=== PATIENT | female | born 1940 | race Caucasian/White ===

== ENCOUNTER → 2016-09-16 | Outpatient (REF) | payer MEDICARE | LOC: M SFHCCLAY 16:35 | PROVIDERS: ATTEND Nurse Practitioner Family | DX: J02.9 Acute pharyngitis, unspecified (principal) | CPT/HCPCS: 87070; 87804; 87880; 94640; G0463 ==

== ENCOUNTER → 2016-11-22 | Outpatient (CLI) | payer MEDICARE ==
[~2016-11-22] MED LIST: AMLO10TA2 PO; ASPI1TAB24 PO; LISI20TA3 PO; MAGN250T5 PO; MELO7.5T6 PO; NATU400T PO; OMEP40CA2 PO; PRAV20TA2 PO; VITA-130 PO; VITA100072 PO; VITA1TAB7 PO; [UNRECOGNIZED DRUG - CODE] PO
[2016-11-22 11:46] LABS: INR 0.9
[2016-11-22 11:47] LABS: MEAN CORPUSCULAR HEMOGLOBIN 29.3 pg (27.0-33.0); MEAN CORPUSCULAR HGB CONC 34.2 g/dl (32.0-36.5); MEAN CORPUSCULAR VOLUME 85.9 fl (80.0-96.0); RED CELL DISTRIBUTION WIDTH 13.3 % (11.5-14.5); WHITE BLOOD COUNT 10.2 K/mm3 (4.0-10.0)
[2016-11-22 12:09] LABS: ALBUMIN 3.8 GM/DL (3.2-5.2); ALBUMIN/GLOBULIN RATIO 1.19 (1.00-1.93); ALKALINE PHOSPHATASE 108 U/L (45-117); ALT/SGPT 24 U/L (12-78); ANION GAP 7 MEQ/L (8-16); AST/SGOT 23 U/L (15-37); BILIRUBIN,TOTAL 0.4 MG/DL (0.2-1.0); BLOOD UREA NITROGEN 17 MG/DL (7-18); CALCIUM LEVEL 9.4 MG/DL (8.8-10.2); CARBON DIOXIDE LEVEL 28 MEQ/L (21-32); CHLORIDE LEVEL 106 MEQ/L (98-107); CREATININE FOR GFR 0.84 MG/DL (0.55-1.02); GLOMERULAR FILTRATION RATE > 60.0 (>39); GLUCOSE, FASTING 116 MG/DL (83-110); POTASSIUM SERUM 3.9 MEQ/L (3.5-5.1); SODIUM LEVEL 141 MEQ/L (136-145)
--- NOTE | 2016-11-22 12:09 | REP ---
Chest two views HISTORY: Arthritis Comparison: None Linear densities are present in the left lower lobe consistent with atelectasis or scar. The right lung is clear. The heart is normal in size. The pulmonary vasculature is normal in appearance. Degenerative change is present in the thoracic spine. IMPRESSION: Left lower lobe atelectasis or scar. Signed by Aakash Wen MD 11/22/2016 12:00 P
--- NOTE | 2016-11-23 07:14 | ECGEPIP ---
Stationary ECG Study [facility] Test Date: 2016-11-22 Pat Name: CULLEN MCALLISTER Department: Room: - Gender: F Casino Dealer: Francine : 1940 Requested By: Curry Amos Order Number: [id number] Reading MD: Alonzo Vasquez Measurements Intervals [place] Rate: 102 P: 57 TX: 162 QRS: 3 QRSD: 78 T: 39 QT: 337 QTc: 440 Interpretive Statements Sinus tachycardia Diffusely low QRS complex voltages Nonspecific ST-T wave abnormalities Comparison tracing not on file Electronically Signed On 11-23-2016 7:13:58 EDT by Alonzo Vasquez
== END ==
LOC: M ADMPAT 10:08
PROVIDERS: ATTEND Orthopaedic Surgery
DX: M25.562 Pain in left knee (principal); Z01.818 Encounter for other preprocedural examination; Z79.899 Other long term (current) drug therapy

== ENCOUNTER 2016-12-06 09:19 | Inpatient (IN) | payer MEDICARE ==
[2016-11-22 10:35] VITALS: BP 157/81
--- NOTE | 2016-12-02 15:51 | HPE ---
DATE OF ADMISSION: 12/06/2016 ATTENDING PHYSICIAN: Dr. Curry Amos. DIAGNOSIS: Left knee osteoarthritis. HISTORY: The patient is a pleasant 76-year-old female with progressively worsening left knee pain and stiffness. She has failed to improve with conservative treatment. She is elected for a left total knee arthroplasty with Dr. Amos for her continued symptoms. Medical optimization pending with Dr. Swift. It is not available for review today. CURRENT MEDICATIONS: - pravastatin 20 mg daily - amlodipine 10 mg daily - omeprazole 20 mg daily - meloxicam 7.5 mg daily - lisinopril 20 mg daily - vitamin B6 200 mg daily - vitamin B12 1000 mcg daily - vitamin E 400 units daily - magnesium 250 mg daily - vitamin C 500 mg daily - fiber capsules 625 mg daily ALLERGIES: No known drug allergies. MEDICAL HISTORY: 1. Hyperlipidemia. 2. Hypertension. 3. Gastroesophageal reflux. SURGICAL HISTORY: Total hysterectomy. SOCIAL HISTORY: The patient denies tobacco or alcohol use. REVIEW OF SYSTEMS: The patient denies fevers, chills, nausea, vomiting, or diarrhea. She denies chest pain, shortness of breath, lightheadedness or headaches. She denies any recent upper respiratory tract infection symptoms or urinary tract infection symptoms. She does have persistent pain in the left knee with weightbearing activities. EXAMINATION: GENERAL: Well-nourished, well-developed female in no apparent distress. NECK: Supple without lymphadenopathy or jugular venous distention. HEART: Regular rate and rhythm. LUNGS: Clear to auscultation bilaterally. No rales or wheezes. ABDOMEN: Soft, nontender to palpation. Bowel sounds present. MUSCULOSKELETAL: The patient is walking with a slight limp favoring the left side. Inspection of the left knee revealed no gross abnormalities. The skin is intact. The patient can extend the knee to about five degrees and flex to almost 90 degrees. She does have normal strength of the left lower extremity. No hip irritability elicited with range of motion. Her calf is soft, nontender to palpation with no palpable cords noted. Distally she is neurovascularly intact. VITAL SIGNS: Height 5 feet 2 inches, weight 191.6 pounds, temperature 97.8, blood pressure 142/82, pulse 86, respirations 16. IMAGING: Chest x-ray shows left lower lobe atelectasis or scar. EKG shows sinus tachycardia. Diffusely low QRS complex voltages. Nonspecific ST-T wave abnormalities. MICROBIOLOGY: Nasal and sinus culture shows normal leola. Urinalysis positive for only 1+ bacteria. Urine culture shows no growth of clinical significance, one organism. LABORATORY DATA: Complete blood count: WBC elevated at 10.2, red blood cell count 5.13, hemoglobin 15.1, hematocrit 44.1, platelets 205. Erythrocyte sedimentation rate 11. Prothrombin time 12.3, INR 0.90. Comprehensive metabolic profile: Fasting glucose elevated at 116, BUN 17, creatinine for GFR 0.84. GFR greater than 60. Sodium 141, potassium 3.9, chloride 106, carbon dioxide 28, anion gap decreased at 7, calcium 9.4, AST 23, ALT 24, alkaline phosphatase 108, total bilirubin 0.4 , total protein 7.0, albumin 3.8, albumin globulin ratio 1.19. IMPRESSION: Left knee degenerative arthritis. PLAN: The patient has consented for an elective left total knee arthroplasty with Dr. Amos. Pending medical optimization by Dr. Swift. [facility] CENTERLinda
[2016-12-06] VITALS (8 sets, daily range): BP systolic 131–179; BP diastolic 65–81; O2SAT 95
[~2016-12-06] VITALS: Ht 154.9 cm; Wt 86.0 kg
[2016-12-06] MEDS ORDERED: LR 1,000 ML IV SCH ×4 (09:45→17:00)
[2016-12-06] MEDS ORDERED: COUM1TAB17 PO (10:00)
--- NOTE | 2016-12-06 10:31 | IPN ---
DATE: 12/06/2016 Patient seen and examined. She wishes to proceed with a left total knee arthroplasty. She understands the nature of this, the risks of bleeding, infection, damage to nerves, vessels, persistent pain, wear, loosening, blood clots, medical problems, , among others. Preoperative clearance was obtained. Will plan on proceeding with a left total knee arthroplasty.
[2016-12-06] MEDS ORDERED: BUPIVACAINE HCL 0.25% 30 ML VIAL As Ordered ONE (10:34)
[2016-12-06] MEDS ORDERED: TRANEXAMIC ACID 100 MG/ML 10ML VIAL As Ordered ONE (10:34)
[2016-12-06] MEDS ORDERED: EPINEPHrine INJ 1 MG/ML 1ML VIAL/AMP As Ordered ONE (10:35)
[2016-12-06] MEDS ORDERED: ceFAZolin 1GM INJ (J0690) As Ordered ONE (10:35)
[2016-12-06] MEDS ORDERED: fentaNYL 100 MCG/2 ML INJECTION (J3010) As Ordered ONE ×3 (11:01→12:36)
[2016-12-06] MEDS ORDERED: MIDAZOLAM INJ 2 MG/2 ML VIAL (J2250) As Ordered ONE ×2 (11:01→12:36)
[2016-12-06] MEDS ORDERED: fentaNYL 100 MCG/2 ML INJECTION (J3010) IV ONE (12:15)
[2016-12-06] MEDS ORDERED: MIDAZOLAM INJ 2 MG/2 ML VIAL (J2250) IV ONE (12:15)
[2016-12-06] MEDS ORDERED: ONDANSETRON 4MG/2ML VIAL (J2405) As Ordered ONE (12:36)
[2016-12-06] MEDS ORDERED: LIDOCAINE 2% INJ 100 MG/5 ML SDV (FOR ANES.) As Ordered ONE (12:36)
[2016-12-06] MEDS ORDERED: PROPOFOL 200 MG/20 ML VIAL As Ordered ONE ×2 (12:36→13:17)
[2016-12-06] MEDS ORDERED: ROPIvacaine 0.5% 30 ML INJECTION (J2795) ONE (14:10)
[2016-12-06] MEDS ORDERED: EPINEPHrine INJ 1 MG/ML 1ML VIAL/AMP ONE (14:10)
[2016-12-06] MEDS ORDERED: MORPHINE PCA 1MG/ML 100ML CADD As Ordered ONE (14:11)
[2016-12-06] MEDS: LR 1,000 ML IV SCH (14:30)
[2016-12-06] MEDS ORDERED: EPIDURAL/PCA KEYS XX PRN (14:30)
[2016-12-06] MEDS ORDERED: ONDANSETRON 4MG/2ML VIAL (J2405) IV PRN ×4 (14:30→17:00)
[2016-12-06] MEDS ORDERED: ACETAMINOPHEN TAB 650MG DOSE (2X325MG) PO PRN (14:30)
[2016-12-06] MEDS ORDERED: MORPHINE PCA 1MG/ML 100ML CADD IV PRN (14:30)
[2016-12-06] MEDS ORDERED: FLEET ENEMA PR PRN (14:30)
[2016-12-06] MEDS ORDERED: NALBUPHINE HCL 10 MG/ML AMP (J2300) IV PRN (14:30)
[2016-12-06] MEDS ORDERED: diphenhydrAMINE INJ 50MG/ML VIAL (J1200) IV PRN (14:30)
[2016-12-06] MEDS ORDERED: fentaNYL 100 MCG/2 ML INJECTION (J3010) IV PRN ×2 (14:30→17:00)
[2016-12-06] MEDS ORDERED: NALOXONE INJ 0.4 MG/1 ML VIAL (J2310) IV PRN (14:30)
[2016-12-06] MEDS ORDERED: WARFARIN SOD 5 MG TAB PO SCH (17:00)
--- NOTE | 2016-12-06 21:33 | CR ---
DATE OF CONSULTATION: 12/06/2016 CONSULTING PHYSICIAN: Dr. Curry Amos REASON FOR CONSULTATION: Medical management. PRIMARY CARE PROVIDER: Fariba Edgar HISTORY OF PRESENT ILLNESS: The patient is a 76-year-old female with a past medical history significant for hypertension, hyperlipidemia, gastroesophageal reflux disease (GERD) and osteoarthritis, presented to the hospital for an elective left knee surgery by Dr. Amos. The patient tolerated the procedure well. She was seen postoperatively for medical management by the hospitalist group. The patient, at this time, appears to be comfortable, eating dinner, denies any chest pain, shortness of breath. No fevers or chills. Knee pain is controlled. Vitals appear within normal limits. REVIEW OF SYSTEMS: 12-point review of systems was obtained, all of which was negative except for those mentioned above. PAST MEDICAL HISTORY: Significant for Hypertension, hyperlipidemia, GERD. PAST SURGICAL HISTORY: Significant for hysterectomy. ALLERGIES: No known drug allergies. SOCIAL HISTORY: The patient denies tobacco or alcohol use. FAMILY HISTORY: Noncontributory. MEDICATIONS: Include: - pravastatin 20 mg by mouth daily - amlodipine 10 mg by mouth daily - omeprazole 20 mg by mouth daily - meloxicam 7.5 mg by mouth daily - lisinopril 20 mg by mouth daily - vitamin B6 200 mg daily - vitamin B12 1000 mcg by mouth daily - vitamin E 400 units daily - magnesium 250 mg by mouth daily - vitamin C 500 mg by mouth daily - Fiber-Caps 625 mg by mouth daily PHYSICAL FINDINGS: VITAL SIGNS: Postoperatively, temperature 99.4, pulse 81, respiratory rate 12, blood pressure 147/71, pulse oximetry 96% on 1 liter nasal cannula. HEENT: Pupils equal, round, reactive to light and accommodation. Neck: Supple. No jugular venous distention (JVD). Lungs: Clear to auscultation bilaterally. Abdomen: Soft, nontender, nondistended. Obese. Extremities: Left knee dressing intact. No clubbing or sepsis, cyanosis or edema. Neurologic: Cranial nerves II-XII grossly intact. No focal deficits. LABORATORY FINDINGS: No labs were reviewed prior to clearance. ASSESSMENT AND PLAN: 1. Knee osteoarthritis, status post left total knee arthroplasty by Dr. Curry Amos. Activity, pain control and diet per surgery. Patient is currently on Coumadin 5 mg daily. Pain is currently controlled. 2. Hypertension. We will resume the patient's amlodipine. We will hold lisinopril at this time pending labs in the morning. 3. History of hyperlipidemia. Continue the patient's pravastatin 20 mg by mouth daily. 4. History of gastroesophageal reflux disease (GERD). Continue the patient omeprazole 40 mg by mouth daily. 5. Deep vein thrombosis (DVT) prophylaxis. The patient is currently on Coumadin 5 mg. The patient will be seen by Dr. Nneka Washburn in the morning.
--- NOTE | 2016-12-06 23:20 | RO ---
DATE OF PROCEDURE: 12/06/2016 PREOPERATIVE DIAGNOSIS: Left knee osteoarthritis. POSTOPERATIVE DIAGNOSIS: Left knee osteoarthritis. PROCEDURE: Left total knee arthroplasty using a PFC rotating platform, posterior stabilize, size 3 femur, size 2-1/2 tibial tray, 15 polyethylene and a 32 patellar button. SURGEON: Dr. Curry Amos DENTAL APPLIANCE REPAIRER: ANESTHESIA: Spinal ESTIMATED BLOOD LOSS: Less than 50 mL. COMPLICATIONS: None. INDICATIONS: A 76-year-old woman who has had gradually worsening left knee pain and loss of range of motion, particularly in flexion. She can only flex back to about 90 degrees. She had severe arthritis on the x-rays and had failed conservative management. She wished to go ahead with surgical treatment, understood the nature of the procedure, risks of bleeding, infection, damage to nerves, vessels, persistent pain, wear, loosening, blood clots, medical problems , among others. DESCRIPTION OF PROCEDURE: The patient was taken to the operating room and placed in the supine position after spinal anesthesia was induced. Left lower extremity was prepped and draped in the usual sterile fashion. Time-out was performed. I then created a longitudinal incision over the anterior aspect of the knee. Sharp dissection was carried down through subcutaneous tissue. I then created a medial parapatellar arthrotomy per routine, everted the patella and flexed the knee up. I could only flex it to 90 degrees. I then was able to use the canal initiating reamer followed by the intramedullary femoral guide set at 5 valgus and 10 mm cut. This was pinned in place by the senior care assistant. The distal femoral cut was made by the senior care assistant as I protected soft tissues. I did remove some of the fat pad. I had also done a medial release. The femur was sized to be a 3, so I pinned the external rotation guide on the end of the femur and put the 4-in-1 cutting block on and secured this down, made the remaining four cuts. We then used the tibial alignment guide and put at the appropriate amount of posterior slope and valgus and pinned this in place. The cut was made about 2 mm off the low side. It looked like a fairly big cut, and then this bone was removed. At this point, we took on the challenging task of removing some soft tissue from either side of the knee and the very large osteophytes from the posterior aspect of the femur with an osteotome and curette and rongeur. Care was taken to stay along the bone. I used a curette to try to fish these very large osteophytes out of the back of the knee. This was likely contributing to her loss of flexion. The spacer blocks were then used and it seemed to be a 15 was appropriate in flexion/extension and the gaps were excellent. I then prepared the femoral box cut because of the posterior cruciate ligament (PCL) was deficient, and I think partly because of the thickness that was required to take on the tibial side. The PCL was removed, the box cutting guide was placed. Three cuts were made in the usual fashion. I removed the excess bone and then prepared the tibia. The femoral component was placed and posterior retractor was placed. I sized the tibia to be a 2.5. This was pinned in place, drilled, broached and then the trial components were placed. Excellent stability was noted, excellent alignment, and this was a size 15 polyethylene. I then freehand cut the patella removing about 7 mm of bone, sized it to be a 32. Drill holes were placed and the trial patella was placed and the patella tracked quite nicely. I was overall very pleased with the alignment, position and fit of the components. Trial components were removed, the senior care assistant prepared the bone cement in the modern technique on the back table. I irrigated the bony surfaces copiously, dried them carefully. When the cement was prepared, we placed the cement on the tibial side, impacted it in place, removed excess bone cement, cemented on the femoral component and removed excess bone cement. Both of them were well seated. I then placed a 15 x 3 rotating platform polyethylene and reduced the knee, brought it out in extension. Excellent extension was noted and excellent alignment was noted. I then cemented on the patellar component and had dried the bony surfaces before cementing and held this in place with a clamp until the cement had hardened. I did close the deep layer with some interrupted #1 Vicryl sutures, and we had placed the TXA solution in the knee. We then used the Stratafix suture starting in the midportion of patella, and we worked in opposite directions closing the deep retinaculum in a watertight closure. The subcu was irrigated, the subcu was closed with #2-0 Vicryl, the skin with nelson. I did place the PainBuster catheter through the superolateral aspect of the knee, inserted the catheter and primed this with 20 mL of Marcaine. Once the sterile dressing was applied, and the PainBuster was secured to the side of the knee, she was taken to the recovery room in stable condition. The tourniquet had been deflated prior to final wound closure. Plan will be routine postop. The senior care assistant was instrumental in holding retractors, in making a couple of the bone cuts and assisting in wound closure. ADDENDUM: This was coded as an unusually difficult procedure because of the patient's very limited range of motion preoperatively and the significant large osteophytes that were noted posteriorly and the somewhat difficulty we had actually obtaining improved range of motion, the soft tissue balancing was more challenging. This required more time than the standard total knee. Addendum Dictated: 12/06/2016 1544 Addendum Transcribed: 12/07/2016 0630 gabriel OVALLE
[2016-12-07] MEDS: LR 1,000 ML IV SCH (03:50)
[2016-12-07 06:00] VITALS: BP 161/77
[2016-12-07] MEDS ORDERED: PERCOCET 5MG/325MG TAB PO PRN (07:00)
[2016-12-07 07:34] LABS: INR 1.53
[2016-12-07 07:53] LABS: ALBUMIN 2.9 GM/DL (3.2-5.2); ALBUMIN/GLOBULIN RATIO 0.88 (1.00-1.93); ALKALINE PHOSPHATASE 69 U/L (45-117); ALT/SGPT 19 U/L (12-78); ANION GAP 7 MEQ/L (8-16); AST/SGOT 20 U/L (15-37); BILIRUBIN,TOTAL 0.3 MG/DL (0.2-1.0); BLOOD UREA NITROGEN 9 MG/DL (7-18); CALCIUM LEVEL 8.5 MG/DL (8.8-10.2); CARBON DIOXIDE LEVEL 29 MEQ/L (21-32); CHLORIDE LEVEL 103 MEQ/L (98-107); CREATININE FOR GFR 0.78 MG/DL (0.55-1.02); GLOMERULAR FILTRATION RATE > 60.0 (>39); GLUCOSE, FASTING 144 MG/DL (83-110); POTASSIUM SERUM 3.9 MEQ/L (3.5-5.1); SODIUM LEVEL 139 MEQ/L (136-145); TOTAL PROTEIN 6.2 GM/DL (6.4-8.2)
[2016-12-07 08:16] LABS: MEAN CORPUSCULAR HEMOGLOBIN 29.3 pg (27.0-33.0); MEAN CORPUSCULAR VOLUME 86.4 fl (80.0-96.0); RED CELL DISTRIBUTION WIDTH 13.3 % (11.5-14.5); WHITE BLOOD COUNT 12.6 K/mm3 (4.0-10.0)
[2016-12-07] MEDS: PRAVASTATIN 20 MG TAB PO SCH (09:52)
[2016-12-07] MEDS: MIRALAX *UNIT DOSE* 17GM PACKET PO SCH (09:52)
[2016-12-07] MEDS: MOM 30ML SUSPENSION UDC PO SCH (09:52)
[2016-12-07] MEDS: OMEPRAZOLE 20 MG CAP PO SCH (09:53)
[2016-12-07] MEDS: SENOKOT S TAB PO SCH ×2 (09:53→21:23)
[2016-12-07] MEDS: amLODIPine 10 MG TAB PO SCH (09:53)
[2016-12-07] MEDS: PERCOCET 5MG/325MG TAB PO PRN ×3 (09:54→23:18)
[2016-12-07 10:00] VITALS: BP 155/71
[2016-12-07] MEDS: ONDANSETRON 4 MG TAB (S0181) PO PRN ×2 (10:05→17:13)
--- NOTE | 2016-12-07 10:30 | REP ---
LEFT KNEE, TWO VIEWS: AP and lateral views of the left knee are performed. There is a total knee prosthesis in good position. Structures are well aligned. Metallic skin nelson are seen anteriorly. Signed by Chavez Hewitt MD 12/07/2016 02:26 P
--- NOTE | 2016-12-07 11:08 | IPNPDOC ---
Subjective Date Seen The patient was seen on 12/07/16. Subjective Chief Complaint/HPI The patient is a 76-year-old female admitted with a reason for visit of Left Knee Arthritis. Events since last encounter POD #1 LEFT TKR. c/o pain, otherwise feels well. Constitutional: Denies: Chills, Fever, Night Sweats Pulmonary: Denies: Cough, Dyspnea Cardiovascular: Denies: Chest Pain, Lt Headedness, Orthopnea, Palpitations, Paroxysmal Noc. Dyspnea Gastrointestinal: Denies: Abdominal Pain, Constipation, Diarrhea, Nausea, Vomiting Psych: Reports: Mood Normal, Denies: Depression, Memory Issues Objective Physical Examination General Exam: Positive: Alert, No Acute Distress Eye Exam: Positive: Conjunctiva & lids normal, EOMI, PERRLA, Negative: Sclera icteric Neck Exam: Positive: Supple, Negative: JVD, thyromegaly Chest Exam: Positive: Clear to auscultation, Normal air movement Abdomen Exam: Positive: Normal bowel sounds, Soft, Negative: Hepatospenomegaly, Tenderness Psych Exam: Positive: Mental status NL, Mood NL, Oriented x 3 Assessment /Plan Problems (1) S/P total knee replacement Status: Acute Problem Text: Pain control and warfarin per Ortho (2) HTN (hypertension) Status: Chronic Response to Treatment: Stable Problem Text: Amlodipine, lisinopril and HCTZ home doses started. REnal function stable. (3) Hyperlipemia Status: Chronic Response to Treatment: Stable Problem Text: Pravachol home dose ordered (4) Diabetes Status: Chronic Response to Treatment: Stable Problem Text: diet controlled Plan/VTE VTE Prophylaxis Ordered?: Yes (warfarin) Plan Attending note: I saw and evaluated the patient, and I agree with the plan of care as discussed and documented above by Lucina Noriega. Pt doing well POD1 from R total knee. Passing gas, tolerating diet, no respiratory problems, no chest pain. Doing bowel regimen. Participating in PT. BP controlled. Cont current care. DVT ppx per ortho. INR 1.53. Jorge Linda MD VS, I&O, 24H, Fishbone Vital Signs/I&O Vital Signs Date Time Temp Pulse Resp B/P Pulse Ox O2 Delivery O2 Flow Rate FiO2 12/07/16 09:54 18 12/07/16 09:53 86 161/77 12/07/16 06:00 98.9 96 Nasal Cannula 1.0 I&O- Last 24 Hours up to 6 AM 12/07/16 06:00 Intake Total 920 ml Output Total 775 ml Balance 145 ml Laboratory Data 24H LABS Laboratory Tests 2 12/07/16 07:04: Blood Urea Nitrogen 9, Creatinine 0.78, Sodium Level 139, Potassium Level 3.9, Chloride Level 103, Carbon Dioxide Level 29, Calcium Level 8.5L, Aspartate Amino Transf (AST/SGOT) 20, Alanine Aminotransferase (ALT/SGPT) 19, Alkaline Phosphatase 69, Total Bilirubin 0.3, Total Protein 6.2L, Albumin 2.9L, Albumin/ Globulin Ratio 0.88L, Anion Gap 7L, Glomerular Filtration Rate > 60.0, Prothromb Time International Ratio 1.53, Prothrombin Time 18.5H CBC/BMP Laboratory Tests 12/07/16 07:04 Calcium Level 8.5 L, Aspartate Amino Transf (AST/SGOT) 20, Alanine Aminotransferase (ALT/SGPT) 19, Alkaline Phosphatase 69, Total Bilirubin 0.3, Total Protein 6.2 L, Albumin 2.9 L, Red Blood Count 4.36, Mean Corpuscular Volume 86.4, Mean Corpuscular Hemoglobin 29.3, Mean Corpuscular Hemoglobin Concent 34.0, Red Cell Distribution Width 13.3 Gaby Noriega Dec 07, 2016 11:07 JORGE LINDA MD Dec 07, 2016 14:19
[2016-12-07] MEDS: LISINOPRIL 20 MG TAB PO SCH (13:58)
[2016-12-07] MEDS: hydroCHLOROthiazide 25 MG TAB PO SCH (13:58)
[2016-12-07 14:00] VITALS: BP 146/67
[2016-12-07 18:00] VITALS: BP 142/64
[2016-12-07 22:00] VITALS: BP 145/70
[2016-12-08 06:00] VITALS: BP 145/69
[2016-12-08] MEDS: PERCOCET 5MG/325MG TAB PO PRN ×3 (06:45→20:12)
[2016-12-08 07:11] LABS: INR 2.35; MEAN CORPUSCULAR HEMOGLOBIN 28.7 pg (27.0-33.0); MEAN CORPUSCULAR HGB CONC 33.7 g/dl (32.0-36.5); MEAN CORPUSCULAR VOLUME 85.1 fl (80.0-96.0); RED CELL DISTRIBUTION WIDTH 13.4 % (11.5-14.5); WHITE BLOOD COUNT 15.7 K/mm3 (4.0-10.0)
[2016-12-08 07:15] LABS: ALBUMIN 2.7 GM/DL (3.2-5.2); ALBUMIN/GLOBULIN RATIO 0.82 (1.00-1.93); ALKALINE PHOSPHATASE 66 U/L (45-117); ALT/SGPT 14 U/L (12-78); ANION GAP 6 MEQ/L (8-16); AST/SGOT 14 U/L (15-37); BILIRUBIN,TOTAL 0.5 MG/DL (0.2-1.0); BLOOD UREA NITROGEN 12 MG/DL (7-18); CALCIUM LEVEL 8.5 MG/DL (8.8-10.2); CARBON DIOXIDE LEVEL 31 MEQ/L (21-32); CHLORIDE LEVEL 100 MEQ/L (98-107); CREATININE FOR GFR 0.77 MG/DL (0.55-1.02); GLOMERULAR FILTRATION RATE > 60.0 (>39); GLUCOSE, FASTING 141 MG/DL (83-110); POTASSIUM SERUM 3.6 MEQ/L (3.5-5.1); SODIUM LEVEL 137 MEQ/L (136-145)
[2016-12-08] MEDS ORDERED: PREVNAR 13 VACCINE SYRINGE (CPT CODE:90670) IM ONE (09:00)
[2016-12-08] MEDS: PRAVASTATIN 20 MG TAB PO SCH (09:02)
[2016-12-08] MEDS: MIRALAX *UNIT DOSE* 17GM PACKET PO SCH (09:02)
[2016-12-08] MEDS: hydroCHLOROthiazide 25 MG TAB PO SCH (09:03)
[2016-12-08] MEDS: amLODIPine 10 MG TAB PO SCH (09:04)
[2016-12-08] MEDS: LISINOPRIL 20 MG TAB PO SCH (09:04)
[2016-12-08] MEDS: OMEPRAZOLE 20 MG CAP PO SCH (09:04)
[2016-12-08] MEDS: SENOKOT S TAB PO SCH ×2 (09:04→20:12)
[2016-12-08] MEDS: MOM 30ML SUSPENSION UDC PO SCH (09:04)
[2016-12-08 14:00] VITALS: BP 119/56
[2016-12-08 22:00] VITALS: BP_SYST 113; BP_SYST 120; BP_DIAS 56; BP_DIAS 68
[2016-12-09] MEDS: PERCOCET 5MG/325MG TAB PO PRN (04:42)
[2016-12-09 06:00] VITALS: BP 118/58
[2016-12-09 06:58] LABS: INR 1.85
[2016-12-09 07:08] LABS: ALBUMIN 2.4 GM/DL (3.2-5.2); ALBUMIN/GLOBULIN RATIO 0.71 (1.00-1.93); ALKALINE PHOSPHATASE 67 U/L (45-117); ALT/SGPT 14 U/L (12-78); ANION GAP 6 MEQ/L (8-16); AST/SGOT 17 U/L (15-37); BILIRUBIN,TOTAL 0.4 MG/DL (0.2-1.0); BLOOD UREA NITROGEN 13 MG/DL (7-18); CALCIUM LEVEL 8.5 MG/DL (8.8-10.2); CARBON DIOXIDE LEVEL 30 MEQ/L (21-32); CHLORIDE LEVEL 100 MEQ/L (98-107); CREATININE FOR GFR 0.78 MG/DL (0.55-1.02); GLOMERULAR FILTRATION RATE > 60.0 (>39); GLUCOSE, FASTING 130 MG/DL (83-110); POTASSIUM SERUM 3.7 MEQ/L (3.5-5.1); SODIUM LEVEL 136 MEQ/L (136-145); TOTAL PROTEIN 5.8 GM/DL (6.4-8.2)
[2016-12-09] MEDS ORDERED: COUM2.5T11 PO (08:54)
[2016-12-09] MEDS ORDERED: PERC5TAB6 PO (08:54)
[2016-12-09] MEDS: MIRALAX *UNIT DOSE* 17GM PACKET PO SCH (09:00)
[2016-12-09] MEDS: SENOKOT S TAB PO SCH (09:00)
[2016-12-09] MEDS: MOM 30ML SUSPENSION UDC PO SCH (09:00)
[2016-12-09] MEDS: OMEPRAZOLE 20 MG CAP PO SCH (09:05)
[2016-12-09] MEDS: LISINOPRIL 20 MG TAB PO SCH (09:05)
[2016-12-09 09:06] VITALS: BP 118/58
[2016-12-09] MEDS: hydroCHLOROthiazide 25 MG TAB PO SCH (09:06)
[2016-12-09] MEDS: PRAVASTATIN 20 MG TAB PO SCH (09:06)
[2016-12-09] MEDS: amLODIPine 10 MG TAB PO SCH (09:06)
[2016-12-09 12:17] VITALS: BP 121/56
[2016-12-09] MEDS ORDERED: WARFARIN SOD 2.5 MG TAB PO ONE (17:00)
--- NOTE | 2016-12-14 09:45 | DSES ---
DATE OF ADMISSION: 12/06/2016 DATE OF DISCHARGE: 12/09/2016 ADMITTING DIAGNOSIS: Symptomatic left knee osteoarthritis. DISCHARGE DIAGNOSIS: Status post left total knee arthroplasty. HISTORY OF PRESENT ILLNESS: This is a pleasant 76-year-old female with progressively worsening left knee symptoms with a history of osteoarthritis. She has consented for left total knee arthroplasty per Dr. Curry Amos. Medical optimization per Dr. Swift. X-rays are consistent with advanced osteoarthritis. The patient consented for a left total knee arthroplasty per Dr. Curry Amos. OPERATION PERFORMED: Left total knee arthroplasty. HOSPITAL COURSE: The patient uneventfully underwent left total knee arthroplasty under spinal anesthesia and was returned to recovery comfortable. Our hospital team discharged the patient on 12/09/2016 with the following instructions. Weightbearing as tolerated left lower extremity with walker. Coumadin and FLORENTINO stockings times 30 days, Percocet as needed pain, diet is regular, Optifoam dressing change in 4 days time. The patient will follow up at [facility] clinic in 12-14 days for wound check, staple removal. The patient is encouraged to contact our office sooner with increased pain, redness, drainage, bleeding, fever greater than 101 or further concerns. VASQUEZ
== END 2016-12-09 12:55 | disposition home health service (06) | DRG 470 ==
LOC: M OR 09:19 → M MS5PR 15:25
PROVIDERS: ADMIT Orthopaedic Surgery; ATTEND Orthopaedic Surgery
PROC: 0SRD0J9 Replacement of Left Knee Joint with Synthetic Substitute, Cemented, Open Approach (ICD-10-PCS; principal; 2016-12-06 11:45)
DX: M17.12 Unilateral primary osteoarthritis, left knee (principal); I10 Essential (primary) hypertension; E78.5 Hyperlipidemia, unspecified; K21.9 Gastro-esophageal reflux disease without esophagitis; E66.9 Obesity, unspecified; R26.89 Other abnormalities of gait and mobility; E11.9 Type 2 diabetes mellitus without complications; Z79.899 Other long term (current) drug therapy; Z90.710 Acquired absence of both cervix and uterus; Z68.35 Body mass index [BMI] 35.0-35.9, adult; Z79.82 Long term (current) use of aspirin

== ENCOUNTER → 2016-12-12 | Outpatient (REF) | payer MEDICARE ==
[~2016-12-12] MED LIST changes: +COUM1TAB17 PO; +COUM2.5T11 PO; +PERC5TAB6 PO
[2016-12-12 13:54] LABS: INR 2.55
== END ==
LOC: M LAB REF 13:31
PROVIDERS: ATTEND Nurse Practitioner Family
DX: Z79.01 Long term (current) use of anticoagulants (principal)

== ENCOUNTER → 2016-12-22 | Outpatient (REF) | payer MEDICARE ==
[2016-12-22 12:20] LABS: INR 1.82
== END ==
LOC: M LABDRAW1 11:44
PROVIDERS: ATTEND Orthopaedic Surgery
DX: Z79.01 Long term (current) use of anticoagulants (principal)

== ENCOUNTER → 2016-12-29 | Outpatient (REF) | payer MEDICARE ==
[2016-12-29 17:15] LABS: INR 1.55
== END ==
LOC: M LAB REF 16:06
PROVIDERS: ATTEND Nurse Practitioner Family
DX: Z79.01 Long term (current) use of anticoagulants (principal)

== ENCOUNTER → 2017-01-09 | Outpatient (REF) | payer MEDICARE ==
[2017-01-09 11:35] LABS: MEAN CORPUSCULAR HEMOGLOBIN 28.7 pg (27.0-33.0); MEAN CORPUSCULAR HGB CONC 32.7 g/dl (32.0-36.5); MEAN CORPUSCULAR VOLUME 87.8 fl (80.0-96.0); RED CELL DISTRIBUTION WIDTH 13.8 % (11.5-14.5)
[2017-01-09 12:12] LABS: ALBUMIN 3.7 GM/DL (3.2-5.2); ALBUMIN/GLOBULIN RATIO 1.12 (1.00-1.93); ALKALINE PHOSPHATASE 91 U/L (45-117); ALT/SGPT 22 U/L (12-78); ANION GAP 7 MEQ/L (8-16); AST/SGOT 18 U/L (15-37); BILIRUBIN,TOTAL 0.5 MG/DL (0.2-1.0); BLOOD UREA NITROGEN 11 MG/DL (7-18); CALCIUM LEVEL 9.2 MG/DL (8.8-10.2); CARBON DIOXIDE LEVEL 31 MEQ/L (21-32); CHLORIDE LEVEL 104 MEQ/L (98-107); CHOLESTEROL LEVEL 191 MG/DL (<200); CREATININE FOR GFR 0.79 MG/DL (0.55-1.02); GLOMERULAR FILTRATION RATE > 60.0 (>39); GLUCOSE, FASTING 103 MG/DL (83-110); SODIUM LEVEL 142 MEQ/L (136-145); TRIGLYCERIDES LEVEL 132 MG/DL (<150)
== END ==
LOC: M SFHCCLAY 08:57
PROVIDERS: ATTEND Nurse Practitioner Family
DX: K21.9 Gastro-esophageal reflux disease without esophagitis (principal); I10 Essential (primary) hypertension; E11.69 Type 2 diabetes mellitus with other specified complication; E78.4 Other hyperlipidemia; Z13.21 Encounter for screening for nutritional disorder

== ENCOUNTER → 2017-04-03 | Outpatient (CLI) | payer MEDICARE ==
[~2017-04-03] MED LIST changes: +ASPI-161 PO; -ASPI1TAB24 PO; +ASPI81TA85 PO; -COUM2.5T11 PO; +COUM2.5T17 PO; -MAGN250T5 PO; +MAGN250T6 PO; -MELO7.5T6 PO; +MELO7.5T7 PO; +PERC5TAB12 PO; -PERC5TAB6 PO; -VITA-130 PO; +VITA500T PO
--- NOTE | 2017-04-03 11:37 | REPMRS ---
Patient History The patient states she had a clinical breast exam in 04/12 Patient is postmenopausal. Family history of breast cancer in sister at age 50 or over and breast cancer in mother at age 50 or over. Benign cyst aspiration of the left breast, 2007. Digital Woman Screen Mammo: April 03, 2017 - Exam #: [id number] Bilateral CC and MLO view(s) were taken. Technologist: Mariana Griggs, Technologist Prior study comparison: April 01, 2016, digital woman screen mammo performed at [facility]. March 04, 2015, digital woman screen mammo performed at [facility]. FINDINGS: There are scattered fibroglandular densities. There has been no change in the appearance of the mammogram from the prior studies. There is a mild amount of residual fibroglandular tissue which is fairly symmetric. There is no interval development of dominant mass, architectural distortion, or clustered microcalcification suggestive of malignancy. ASSESSMENT: BI-RADS/ACR category 1 mammogram. Negative. Recommendation Routine screening mammogram in 1 year (for women over age 40). This mammogram was interpreted with the aid of an FDA-approved computer-aided dectection system. Electronically Signed By: Chavez Hewitt MD 04/03/17 0318
--- NOTE | 2017-04-04 09:52 | DEXA ---
AP SPINE L1 - L4 1.261 0.5 2.3 LT FEMUR TOTAL 0.805 -1.6 0.3 RT FEMUR TOTAL 0.783 -1.8 0.1 TOTAL BODY TOTAL OTHER DUAL FEMUR FRAX* ASSESSMENT Risk factors: Not performed. 10 year probability of fracture Major osteoporotic fracture % Hip fracture % COMMENTS: Normal bone densitometry of the spine. There is low bone density of the hips. The decreased density of the spine does not represent a significant change. The decreased density of the left hip does represent a significant change. The decreased density of the right hip does represent a significant change. The density of the spine is increased 7.5% since the initial exam on 11/01/2006. The spine density has decreased 0.5% since the most recent exam on 03/04/2015. The density of the left hip has decreased 24.6% since the initial exam on 2000. The density of the left hip has decreased 6.1% since the most recent exam on 03/2015. The density of the right hip has decreased 20.7% since the initial exam on 11/01. The density of the right hip has decreased 2.7% since the most recent exam on . FOLLOW-UP: Recommendation for the next bone density exam: 2 years. VASQUEZ
== END ==
LOC: M WHC 09:47
PROVIDERS: ATTEND Nurse Practitioner Family
DX: Z12.31 Encounter for screening mammogram for malignant neoplasm of breast (principal); M85.9 Disorder of bone density and structure, unspecified; Z78.0 Asymptomatic menopausal state; Z80.3 Family history of malignant neoplasm of breast
CPT/HCPCS: 77080; G0202

== ENCOUNTER → 2017-05-15 | Outpatient (CLI) | payer MEDICARE ==
--- NOTE | 2017-05-15 10:15 | REP ---
PA and lateral chest: Comparisons 11/12/2016. There is minor discoid atelectasis versus parenchymal scar in the left costophrenic angle. Lung feldman otherwise clear. Cardiac size is normal. The alistair, mediastinum, and bony thorax are unchanged. Impression: No significant interval change.
[2017-05-15 11:48] LABS: ANION GAP 10 MEQ/L (8-16); BLOOD UREA NITROGEN 17 MG/DL (7-18); CALCIUM LEVEL 9.5 MG/DL (8.8-10.2); CARBON DIOXIDE LEVEL 29 MEQ/L (21-32); CHLORIDE LEVEL 107 MEQ/L (98-107); CREATININE FOR GFR 0.75 MG/DL (0.55-1.02); GLOMERULAR FILTRATION RATE > 60.0 (>39); GLUCOSE, FASTING 104 MG/DL (83-110); POTASSIUM SERUM 4.3 MEQ/L (3.5-5.1); SODIUM LEVEL 146 MEQ/L (136-145)
== END ==
LOC: M CLY 08:39
PROVIDERS: ATTEND Ophthalmology
DX: I10 Essential (primary) hypertension (principal)

== ENCOUNTER 2017-06-01 09:15 | Day surgery (SDC) | payer MEDICARE ==
[~2017-06-01] VITALS: Ht 154.9 cm; Wt 85.7 kg
[~2017-06-01 09:15] MED LIST changes: +OFLOXACIN 0.3 % (OCUFLOX) OPTH SOL 5ML OS ONE; +PHENYLEPHRINE 2.5% OPHTH SOL 2ML OS ONE; +PROPARACAINE 0.5% OPHTH SOL 15ML OS ONE; +TROPICAMIDE 1% OPHTH SOLN 2ML OS ONE
[2017-06-01] MEDS ORDERED: LR 1,000 ML IV SCH (09:45)
[2017-06-01] MEDS ORDERED: LR 500 ML IV SCH (10:06)
[2017-06-01] MEDS ORDERED: POVIDONE-IODINE 5% OPHTH PREP SOL 30ML As Ordered ONE (10:44)
[2017-06-01] MEDS ORDERED: ACETYLCHOLINE OPHTH SOLN 1% 2ML (MIOCHOL-E) As Ordered ONE (10:45)
[2017-06-01] MEDS ORDERED: DUOVISC (0.50ML VISCOAT/0.55ML PROVISC) OPHTH KIT As Ordered ONE (10:45)
[2017-06-01] MEDS ORDERED: LIDOCAINE 0.75%/EPINEPHRINE 0.025% IN BSS 1ML SYR INTRACAMERAL (OR ONLY) As Ordered ONE (10:45)
[2017-06-01] MEDS ORDERED: BALANCED SALT IRRIGATION SOLUTION 500ML BAG (FOR OR EYE MACHINE) As Ordered ONE (10:45)
[2017-06-01] MEDS ORDERED: CEFUROXIME 1MG/0.1ML INTRACAMERAL INJ As Ordered ONE (10:45)
[2017-06-01] MEDS ORDERED: MIDAZOLAM INJ 2 MG/2 ML VIAL (J2250) As Ordered ONE (10:58)
[2017-06-01] MEDS ORDERED: fentaNYL 100 MCG/2 ML INJECTION (J3010) As Ordered ONE (10:58)
[2017-06-01 11:45] VITALS: BP 133/64
--- NOTE | 2017-06-02 10:09 | RO ---
DATE OF PROCEDURE: 06/01/2017 PREOPERATIVE DIAGNOSIS: Visually significant nuclear sclerotic cataract right eye. POSTOPERATIVE DIAGNOSIS: Visually significant nuclear sclerotic cataract right eye. PROCEDURE: Cataract extraction with use of phacoemulsification, and placement of intraocular lens, SN60WF, 28.0 diopters, right eye. SURGEON: Steve Villarreal DO EMBALMER APPRENTICE: ANESTHESIA: Local with monitored anesthesia care (MAC). COMPLICATIONS: None. POSTOPERATIVE CONDITION: Stable. INDICATION FOR SURGERY: Blurred vision right eye affecting patient's activities of daily living. DESCRIPTION OF PROCEDURE: The patient was seen in the preoperative area and properly identified. The correct operative eye was identified and marked. Attention was turned to that eye. The patient received topical antibiotics in the preoperative area. The patient then received topical dilating drops consisting of Tropicamide and Phenylephrine. The patient was then transferred to the operating room. The correct side was re-identified. The patient received topical anesthetics and antibiotics on the surface of the eye. The eye was prepped and draped in a sterile fashion. The upper and lower eyelids were isolated with Tegaderm tape, and the lids were held open with an adjustable speculum. Using a sideport blade, a paracentesis incision was made. Intraocular preservative-free lidocaine was then injected into the anterior chamber. Viscoelastic was then injected into the anterior chamber through the paracentesis. Using a 2.4 mm sharp-tipped keratome, the anterior chamber was entered via a temporal clear corneal incision. A continuous curvilinear capsulorrhexis was created with the aid of a 26g cystotome and utrata forceps. Hydrodissection was performed with balanced salt solution (BSS) on a blunt cannula until the nucleus was freely mobile. The crystalline lens was phacoemulsified and aspirated. Additional cohesive viscoelastic was placed into the capsular bag to deepen it. A SN60WF 28.0D lens was placed into the capsular bag and confirmed by visualizing the continuous curvilinear capsulorrhexis. Additional irrigation and aspiration was used to remove cortical material and remaining viscoelastic. The clear corneal incision was hydrated with BSS on a blunt cannula. The lens was well positioned. The incisions were then tested for leaks and found to be negative. The eye was then palpated for appropriate pressure and adjusted accordingly with BSS. The eyelid speculum was carefully removed. A shield was placed. The patient tolerated the procedure well and was discharged to the recovery unit in a stable condition. VASQUEZ
== END 2017-06-01 12:10 | disposition home or self-care (01) ==
LOC: M SDC 09:15
PROVIDERS: ATTEND Ophthalmology
DX: H25.11 Age-related nuclear cataract, right eye (principal); I10 Essential (primary) hypertension; E78.00 Pure hypercholesterolemia, unspecified; K21.9 Gastro-esophageal reflux disease without esophagitis; M17.0 Bilateral primary osteoarthritis of knee; M54.2 Cervicalgia; M25.512 Pain in left shoulder; R51 Headache; E11.9 Type 2 diabetes mellitus without complications; Z91.09 Other allergy status, other than to drugs and biological substances; Z79.899 Other long term (current) drug therapy; Z79.82 Long term (current) use of aspirin; Z90.710 Acquired absence of both cervix and uterus; Z78.0 Asymptomatic menopausal state
CPT/HCPCS: 66984; J2250; J3010; V2788

== ENCOUNTER 2017-06-22 11:34 | Day surgery (SDC) | payer MEDICARE ==
[~2017-06-22] VITALS: Ht 154.9 cm; Wt 88.4 kg
[~2017-06-22 11:34] MED LIST changes: +OFLOXACIN 0.3 % (OCUFLOX) OPTH SOL 5ML OD ONE; -OFLOXACIN 0.3 % (OCUFLOX) OPTH SOL 5ML OS ONE; +PHENYLEPHRINE 2.5% OPHTH SOL 2ML OD ONE; -PHENYLEPHRINE 2.5% OPHTH SOL 2ML OS ONE; +PROPARACAINE 0.5% OPHTH SOL 15ML OD ONE; -PROPARACAINE 0.5% OPHTH SOL 15ML OS ONE; +TROPICAMIDE 1% OPHTH SOLN 2ML OD ONE; -TROPICAMIDE 1% OPHTH SOLN 2ML OS ONE
[2017-06-22] MEDS ORDERED: fentaNYL 100 MCG/2 ML INJECTION (J3010) As Ordered ONE (12:43)
[2017-06-22] MEDS ORDERED: MIDAZOLAM INJ 2 MG/2 ML VIAL (J2250) As Ordered ONE (12:44)
[2017-06-22] MEDS ORDERED: BALANCED SALT IRRIGATION SOLUTION 500ML BAG (FOR OR EYE MACHINE) As Ordered ONE ×2 (12:54→13:03)
[2017-06-22] MEDS ORDERED: POVIDONE-IODINE 5% OPHTH PREP SOL 30ML As Ordered ONE (13:03)
[2017-06-22] MEDS ORDERED: ACETYLCHOLINE OPHTH SOLN 1% 2ML (MIOCHOL-E) As Ordered ONE (13:03)
[2017-06-22] MEDS ORDERED: LIDOCAINE 0.75%/EPINEPHRINE 0.025% IN BSS 1ML SYR INTRACAMERAL (OR ONLY) As Ordered ONE (13:03)
[2017-06-22] MEDS ORDERED: CEFUROXIME 1MG/0.1ML INTRACAMERAL INJ As Ordered ONE (13:03)
[2017-06-22] MEDS ORDERED: DUOVISC (0.50ML VISCOAT/0.55ML PROVISC) OPHTH KIT As Ordered ONE (13:04)
[2017-06-22 13:45] VITALS: BP 162/75
--- NOTE | 2017-06-26 18:27 | RO ---
DATE OF PROCEDURE: 06/22/2017 PREOPERATIVE DIAGNOSIS: Visually significant nuclear sclerotic cataract right eye. POSTOPERATIVE DIAGNOSIS: Visually significant nuclear sclerotic cataract right eye. PROCEDURE: Cataract extraction with use of phacoemulsification and placement of intraocular lens, SN60WF, 27.5, right eye. SURGEON: Steve Villarreal DO ACCOUNTS PAYABLE OR RECEIVABLE CLERK: ANESTHESIA: Local with monitored anesthesia care (MAC). COMPLICATIONS: None. POSTOPERATIVE CONDITION: Stable. INDICATION FOR SURGERY: Blurred vision right eye affecting patient's activities of daily living. DESCRIPTION OF PROCEDURE: The patient was seen in the preoperative area and properly identified. The correct operative eye was identified and marked. Attention was turned to that eye. The patient received topical antibiotics in the preoperative area. The patient then received topical dilating drops consisting of tropicamide and phenylephrine. The patient was then transferred to the operating room. The correct side was re-identified. The patient received topical anesthetics and antibiotics on the surface of the eye. The eye was prepped and draped in a sterile fashion. The upper and lower eyelids were isolated with Tegaderm tape, and the lids were held open with an adjustable speculum. Using a sideport blade, a paracentesis incision was made. Intraocular preservative-free lidocaine was then injected into the anterior chamber. Viscoelastic was then injected into the anterior chamber through the paracentesis. Using a 2.4 mm sharp-tipped keratome, the anterior chamber was entered via a temporal clear corneal incision. A continuous curvilinear capsulorrhexis was created with the aid of a 26-gauge cystotome and Utrata forceps. Hydrodissection was performed with balanced salt solution (BSS) on a blunt cannula until the nucleus was freely mobile. The crystalline lens was phacoemulsified and aspirated. Additional cohesive viscoelastic was placed into the capsular bag to deepen it. A SN60WF, 27.5 lens was placed into the capsular bag and confirmed by visualizing the continuous curvilinear capsulorrhexis. Additional irrigation and aspiration was used to remove cortical material and remaining viscoelastic. The clear corneal incision was hydrated with BSS on a blunt cannula. The lens was well positioned. The incisions were then tested for leaks and found to be negative. The eye was then palpated for appropriate pressure and adjusted accordingly with BSS. The eyelid speculum was carefully removed. A shield was placed. The patient tolerated the procedure well and was discharged to the recovery unit in a stable condition. MTDD
== END 2017-06-22 13:50 | disposition home or self-care (01) ==
LOC: M SDC 11:34
PROVIDERS: ATTEND Ophthalmology
DX: H25.11 Age-related nuclear cataract, right eye (principal); I10 Essential (primary) hypertension; M17.0 Bilateral primary osteoarthritis of knee; M85.80 Other specified disorders of bone density and structure, unspecified site; K21.9 Gastro-esophageal reflux disease without esophagitis; R51 Headache; Z91.09 Other allergy status, other than to drugs and biological substances; Z79.899 Other long term (current) drug therapy; Z79.82 Long term (current) use of aspirin; Z78.0 Asymptomatic menopausal state; Z96.652 Presence of left artificial knee joint; Z90.710 Acquired absence of both cervix and uterus
CPT/HCPCS: 66984; J2250; J3010; V2632

== ENCOUNTER → 2017-11-13 | Outpatient (REF) | payer MEDICARE ==
[2017-11-13 11:47] LABS: ESTIMATED AVERAGE GLUCOSE 160 MG/DL (60-110); HEMOGLOBIN A1c 7.2 %
[2017-11-13 12:05] LABS: CHOLESTEROL LEVEL 155 MG/DL (<200); CHOLESTEROL RISK RATIO 2.313 (<5); HDL CHOLESTEROL 67 MG/DL (>40); LDL CHOLESTEROL 68.8 MG/DL (<100); NON-HDL-C 88 MG/DL; TRIGLYCERIDES LEVEL 96 MG/DL (<150)
== END ==
LOC: M SFHCCLAY 08:14
DX: E11.69 Type 2 diabetes mellitus with other specified complication (principal); E78.4 Other hyperlipidemia
CPT/HCPCS: 83036

== ENCOUNTER → 2018-03-19 | Outpatient (REF) | payer MEDICARE ==
[2018-03-19 11:55] LABS: HEMATOCRIT 42.7 % (36.0-47.0); HEMOGLOBIN 14.1 g/dl (12.0-15.5); MEAN CORPUSCULAR HEMOGLOBIN 28.2 pg (27.0-33.0); MEAN CORPUSCULAR VOLUME 85.4 fl (80.0-96.0); PLATELET COUNT, AUTOMATED 209 10^3/uL (150-450)
[2018-03-19 12:25] LABS: TOTAL 25(OH) VITAMIN D 57.4 NG/ML (30.0-100.0)
[2018-03-19 12:34] LABS: MALB URINE SIEMENS 11.2 MG/L; MAU/CREAT RATIO 6.7 MCG/MG (0.0-30.0); TOTAL PROTEIN,RANDOM URINE 11.2 MG/DL (0.0-12.0)
[2018-03-19 12:36] LABS: ALBUMIN 3.5 GM/DL (3.2-5.2); ALBUMIN/GLOBULIN RATIO 1.06 (1.00-1.93); ALKALINE PHOSPHATASE 91 U/L (45-117); ALT/SGPT 25 U/L (12-78); ANION GAP 9 MEQ/L (8-16); AST/SGOT 17 U/L (7-37); BILIRUBIN,TOTAL 0.6 MG/DL (0.2-1.0); BLOOD UREA NITROGEN 15 MG/DL (7-18); CALCIUM LEVEL 8.9 MG/DL (8.8-10.2); CARBON DIOXIDE LEVEL 29 MEQ/L (21-32); CHLORIDE LEVEL 107 MEQ/L (98-107); CHOLESTEROL LEVEL 167 MG/DL (<200); CHOLESTEROL RISK RATIO 2.609 (<5); GLOMERULAR FILTRATION RATE > 60.0 (>39); GLUCOSE, FASTING 113 MG/DL (70-100); HDL CHOLESTEROL 64 MG/DL (>40); LDL CHOLESTEROL 80.6 MG/DL (<100); NON-HDL-C 103 MG/DL; POTASSIUM SERUM 3.9 MEQ/L (3.5-5.1); SODIUM LEVEL 145 MEQ/L (136-145); TOTAL PROTEIN 6.8 GM/DL (6.4-8.2); TRIGLYCERIDES LEVEL 112 MG/DL (<150)
[2018-03-19 14:37] LABS: ESTIMATED AVERAGE GLUCOSE 154 MG/DL (60-110)
== END ==
LOC: M SFHCCLAY 08:24
DX: K21.9 Gastro-esophageal reflux disease without esophagitis (principal); I10 Essential (primary) hypertension; E11.69 Type 2 diabetes mellitus with other specified complication; E78.4 Other hyperlipidemia; M85.9 Disorder of bone density and structure, unspecified
CPT/HCPCS: 80053

== ENCOUNTER → 2018-03-23 | Outpatient (REF) | payer MEDICARE | LOC: M SFHCCLAY 13:48 | DX: R35.0 Frequency of micturition (principal) ==

== ENCOUNTER → 2018-03-26 | Outpatient (REF) | payer MEDICARE | LOC: M SFHCCLAY 16:52 | DX: R35.0 Frequency of micturition (principal) | CPT/HCPCS: 87086 ==

== ENCOUNTER → 2018-04-04 | Outpatient (CLI) | payer MEDICARE | LOC: M WHC 12:51 | DX: Z12.31 Encounter for screening mammogram for malignant neoplasm of breast (principal) | CPT/HCPCS: 77067 ==

== ENCOUNTER → 2018-07-24 | Outpatient (REF) | payer MEDICARE ==
[2018-07-24 12:35] LABS: CHOLESTEROL LEVEL 169 MG/DL (<200); HDL CHOLESTEROL 71 MG/DL (>40); LDL CHOLESTEROL 81 MG/DL (<100); NON-HDL-C 98 MG/DL; TRIGLYCERIDES LEVEL 85 MG/DL (<150)
[2018-07-24 13:13] LABS: ESTIMATED AVERAGE GLUCOSE 151 MG/DL (60-110); HEMOGLOBIN A1c 6.9 %
== END ==
LOC: M SFHCCLAY 08:12
DX: E11.69 Type 2 diabetes mellitus with other specified complication (principal); E78.49 Other hyperlipidemia
CPT/HCPCS: 83036

== ENCOUNTER → 2018-11-23 | Outpatient (REF) | payer MEDICARE ==
[~2018-11-23] MED LIST changes: -AMLO10TA2 PO; +AMLO10TA5 PO; -OFLOXACIN 0.3 % (OCUFLOX) OPTH SOL 5ML OD ONE; -PHENYLEPHRINE 2.5% OPHTH SOL 2ML OD ONE; -PROPARACAINE 0.5% OPHTH SOL 15ML OD ONE; -TROPICAMIDE 1% OPHTH SOLN 2ML OD ONE
[2018-11-23 12:33] LABS: HEMOGLOBIN A1c 6.9 %
== END ==
LOC: M SFHCCLAY 08:53
PROVIDERS: ATTEND Nurse Practitioner Family
DX: E11.69 Type 2 diabetes mellitus with other specified complication (principal)

== ENCOUNTER → 2018-11-28 | Outpatient (REF) | payer MEDICARE ==
[~2018-11-28] MED LIST changes: +VITA100018 PO; -VITA100072 PO
[2018-11-28 12:29] LABS: MALB URINE SIEMENS < 5.0 MG/L; MAU/CREAT RATIO 4.4 MCG/MG (0.0-30.0)
== END ==
LOC: M SFHCCLAY 11:28
PROVIDERS: ATTEND Nurse Practitioner Family
DX: E11.69 Type 2 diabetes mellitus with other specified complication (principal)
CPT/HCPCS: 82043; G0463

== ENCOUNTER → 2019-03-19 | Outpatient (REF) | payer MEDICARE ==
[2019-03-19 12:25] LABS: HEMATOCRIT 45.2 % (36.0-47.0); HEMOGLOBIN 14.8 g/dl (12.0-15.5); MEAN CORPUSCULAR HEMOGLOBIN 28.2 pg (27.0-33.0); MEAN CORPUSCULAR HGB CONC 32.7 g/dl (32.0-36.5); MEAN CORPUSCULAR VOLUME 86.1 fl (80.0-96.0); PLATELET COUNT, AUTOMATED 195 10^3/uL (150-450); RED BLOOD COUNT 5.25 10^6/uL (4.00-5.40)
[2019-03-19 12:33] LABS: ALBUMIN 3.8 GM/DL (3.2-5.2); ALT/SGPT 28 U/L (12-78); BILIRUBIN,TOTAL 0.5 MG/DL (0.2-1.0); BLOOD UREA NITROGEN 18 MG/DL (7-18); CALCIUM LEVEL 9.2 MG/DL (8.8-10.2); CARBON DIOXIDE LEVEL 28 MEQ/L (21-32); CHLORIDE LEVEL 108 MEQ/L (98-107); CHOLESTEROL LEVEL 177 MG/DL (<200); CHOLESTEROL RISK RATIO 2.854 (<5); CREATININE FOR GFR 0.87 MG/DL (0.55-1.30); GLOMERULAR FILTRATION RATE > 60.0 (>39); GLUCOSE, FASTING 132 MG/DL (70-100); HDL CHOLESTEROL 62 MG/DL (>40); LDL CHOLESTEROL 89 MG/DL (<100); NON-HDL-C 115 MG/DL; POTASSIUM SERUM 3.9 MEQ/L (3.5-5.1); SODIUM LEVEL 144 MEQ/L (136-145); TOTAL PROTEIN 6.9 GM/DL (6.4-8.2); TRIGLYCERIDES LEVEL 128 MG/DL (<150)
[2019-03-19 12:39] LABS: TOTAL 25(OH) VITAMIN D 34.5 NG/ML (30.0-100.0)
[2019-03-19 12:43] LABS: HEMOGLOBIN A1c 6.9 %
== END ==
LOC: M SFHCCLAY 08:06
PROVIDERS: ATTEND Nurse Practitioner Family
DX: K21.9 Gastro-esophageal reflux disease without esophagitis (principal); I10 Essential (primary) hypertension; E11.69 Type 2 diabetes mellitus with other specified complication; E78.49 Other hyperlipidemia; Z79.899 Other long term (current) drug therapy

== ENCOUNTER 2019-04-06 14:40 | Inpatient (IN) | payer MEDICARE ==
[~2019-04-06] VITALS: Ht 152.4 cm; Wt 87.6 kg
[~2019-04-06 14:40] MED LIST changes: +LISI20TA20 PO; -LISI20TA3 PO
[2019-04-06] MEDS ORDERED: NS 1,000 ML IV SCH (15:05)
[2019-04-06 15:13] LABS: VENOUS BASE EXCESS 0.1 (-2.0-2.0); VENOUS HCO3 25.1 MEQ/L (23.0-27.0); VENOUS O2 SATURATION 74.7 % (60.0-80.0); VENOUS PH 7.394 UNITS (7.330-7.430); VENOUS STANDARD HCO3 23.9 MEQ/L; VENOUS TOTAL CO2 26.4 MEQ/L (24.0-28.0)
[2019-04-06] MEDS ORDERED: methylPREDNISolone INJ 125 MG/2 ML VIAL (J2930) IV ONE (15:15)
[2019-04-06] MEDS ORDERED: ASPIRIN 81 MG CHEW TABLET PO ONE (15:15)
[2019-04-06] MEDS ORDERED: IPRATROPIUM 0.5MG/ALBUTEROL 2.5MG INH SOL UD 3ML (DUONEB)(J7620) NEB PRN (15:15)
[2019-04-06 15:19] LABS: BASO % 0.3 % (0.0-1.0); EOS # 0.1 10^3/uL (0.0-0.50); EOS % 0.7 % (0.0-3.0); HEMATOCRIT 46.9 % (36.0-47.0); HEMOGLOBIN 15.7 g/dl (12.0-15.5); LYMPH # 2.4 10^3/uL (1.5-4.5); LYMPH % 19.1 % (24.0-44.0); MEAN CORPUSCULAR HEMOGLOBIN 28.9 pg (27.0-33.0); MEAN CORPUSCULAR HGB CONC 33.5 g/dl (32.0-36.5); MEAN CORPUSCULAR VOLUME 86.2 fl (80.0-96.0); MONO # 0.8 10^3/uL (0.0-0.8); MONO % 6.4 % (0.0-5.0); NEUTROPHILS # 9.1 10^3/uL (1.8-7.7); NEUTROPHILS % 73.2 % (36.0-66.0); PLATELET COUNT, AUTOMATED 216 10^3/uL (150-450); RED BLOOD COUNT 5.44 10^6/uL (4.00-5.40); WHITE BLOOD COUNT 12.4 10^3/uL (4.0-10.0)
[2019-04-06 15:54] LABS: ALBUMIN 3.9 GM/DL (3.2-5.2); ALT/SGPT 38 U/L (12-78); BILIRUBIN,DIRECT 0.1 MG/DL (0.0-0.2); BILIRUBIN,TOTAL 0.3 MG/DL (0.2-1.0); BLOOD UREA NITROGEN 16 MG/DL (7-18); CALCIUM LEVEL 9.4 MG/DL (8.8-10.2); CARBON DIOXIDE LEVEL 25 MEQ/L (21-32); CHLORIDE LEVEL 108 MEQ/L (98-107); CK-MB VALUE MASS 3.2 NG/ML (<3.6); CPK CREATINE PHOSPHOKINASE 122 U/L (26-192); CREATININE FOR GFR 0.89 MG/DL (0.55-1.30); GLOMERULAR FILTRATION RATE > 60.0 (>39); GLUCOSE, FASTING 164 MG/DL (70-100); MB/CK RELATIVE INDEX 2.62 (< OR =4); NT-PRO BNP 1928 PG/ML (<450); POTASSIUM SERUM 3.5 MEQ/L (3.5-5.1); SODIUM LEVEL 142 MEQ/L (136-145); TOTAL PROTEIN 7.3 GM/DL (6.4-8.2); TROPONIN I 0.25 NG/ML (< 0.10)
--- NOTE | 2019-04-06 16:08 | ECGEPIP ---
[facility] - ED Test Date: 2019-04-06 Pat Name: CULLEN MCALLISTER Department: Room: - Gender: Female Visual Artist: rafa : 1940 Requested By: Joan Bacon Order Number: [id number] Reading MD: Joan Bacon Measurements Intervals [place] Rate: 117 P: 52 AK: 167 QRS: 15 QRSD: 89 T: 11 QT: 402 QTc: 561 Interpretive Statements SINUS TACHYCARDIA ST DEVIATION AND MODERATE T-WAVE ABNORMALITY, CONSIDER ANTERIOR ISCHEMIA ST DEVIATION AND MODERATE T-WAVE ABNORMALITY, CONSIDER INFERIOR ISCHEMIA ST CHANGES NEW 11/22/16 Electronically Signed on 04-06-2019 16:08:20 EDT by Joan Bacon
[2019-04-06 16:22] LABS: INR 0.98; PROTHROMBIN TIME 12.7 SECONDS (11.8-14.0)
[2019-04-06 16:25] LABS: D-DIMER QUANT 3874.04 ng/ml (<500)
[2019-04-06] MEDS ORDERED: ISOVUE-370 76% 100ML VIAL (Q9967) As Ordered ONE (16:53)
--- NOTE | 2019-04-06 17:31 | REPVR ---
EXAM: CT Angiography Chest With Contrast EXAM DATE/TIME: 04/06/2019 4:57 PM CLINICAL HISTORY: 78 years old, female; Shortness of breath; Additional info: SOB TECHNIQUE: Imaging protocol: Axial computed tomographic angiography images of the chest with intravenous contrast using CT angiography protocol. Coronal and sagittal reformatted images were created and reviewed. 3D rendering: MIP reconstructed images were created and reviewed. Radiation optimization: All CT scans at this facility use at least one of these dose optimization techniques: automated exposure control; mA and/or kV adjustment per patient size (includes targeted exams where dose is matched to clinical indication); or iterative reconstruction. Contrast material: ISOVUE 370;Contrast volume: 75 ml;Contrast route: IV; COMPARISON: CR Chest, 1 view 04/06/2019 3:00 PM FINDINGS: Pulmonary arteries: There are multiple bilateral pulmonary emboli with a large is emboli demonstrated in the distal right pulmonary artery as well as numerous branches in the upper lobes, both lower lobes, and lingular lobe. Aorta: The aorta demonstrates mild atherosclerotic calcification. There is no aortic dissection or aneurysm. Lungs: Bibasilar atelectasis. Lungs otherwise clear. Pleural space: Unremarkable. No pneumothorax. No pleural effusion. Heart: Abnormal RV LV ratio consistent with right heart strain. There is moderate atherosclerotic calcification of the coronary arteries. Mediastinum: A small hiatal hernia is present. Adrenals: There is bilateral adrenal hyperplasia. Lymph nodes: Unremarkable. No enlarged lymph nodes. Bones/joints: The spine demonstrates moderate degenerative changes. Osteoporosis. Soft tissues: Unremarkable. IMPRESSION: 1. There are multiple bilateral pulmonary emboli with a large is emboli demonstrated in the distal right pulmonary artery as well as numerous branches in the upper lobes, both lower lobes, and lingular lobe. 2. There is no aortic dissection or aneurysm. 3. Small hiatal hernia. 4. There is bilateral adrenal hyperplasia. 5. Cardiac findings compatible with right heart strain. THIS REPORT CONTAINS FINDINGS THAT MAY BE CRITICAL TO PATIENT CARE. The findings were verbally communicated via telephone conference with MARLIN PRICE at 5:29 PM EDT on 04/06/2019. The findings were acknowledged and understood. Electronically signed by: Ciro Tan On 04/06/2019 17:31:24 PM
[2019-04-06] MEDS ORDERED: ENOXAPARIN 100MG/1ML SYRINGE (J1650) SC ONE (18:00)
--- NOTE | 2019-04-06 18:22 | HPEPDOC ---
[facility] Medical History & Physical Date of Admission Apr 06, 2019 Date of Service: Apr 06, 2019 History and Physical PCP: Radha Edgar CHIEF COMPLAINT: Shortness of breath HISTORY OF PRESENT ILLNESS: Patient is a 78-year-old female who is had no recent surgeries who presents with shortness of breath since Monday. She tells me that the week prior to that she was seen by primary care doctor was in her usual state of good health with good oxygen saturation. She tells me that the following Monday she was just doing regular usual home activities which began to notice dyspnea on exertion. It progressively worsened without any improvement she initially attributed it to the weather and humidity. However today progressive point she began to have the burning sensation in the middle of her chest with deep inspiration propping her to present to the emergency room. She was begun on Monday she was due to go to [facility] to have diagnostic mammogram of 3 concerning lumps of her right breast. She denies any family history of clots or any clots in her personal history following surgery. She tells me that while working with physical therapy she "blew out her left bicep"'s. Otherwise patient denies weight loss, hair loss, headache, visual changes, cough, nausea, vomiting, diarrhea, abdominal pain, muscle aches, worsening arthritis, change in mood PAST MEDICAL HISTORY: 1. Dyslipidemia. 2. Hypertension. 3. Osteoarthritis 4 gastroesophageal reflux disease HOME MEDICATIONS: Please see below. ALLERGIES: Please see below PAST SURGICAL HISTORY: 1. Bilateral cataract extraction 1 year ago. 2. Left total knee replacement 2 years ago. 3. Colonoscopy. 4. Biopsy of left breast SOCIAL HISTORY: Lives with: , Employment: Is not currently working, Tobacco use: Never smoker. ETOH: Denies, Illicit drug use: Denies, Tattoos done unprofessionally: Denies, CODE STATUS: Full code FAMILY HISTORY:Reviewed and noncontributory REVIEW OF SYSTEMS: 10 systems reviewed and negative other than HPI PHYSICAL EXAMINATION: VITAL SIGNS: Temperature 96.8, pulse 134, respiratory rate 16 , blood pressure 180/44, pulse oximetry 92 % on 2 L nasal cannula. GENERAL: Pleasant elderly woman lying in a stretcher at a 30 angle copy by her daughter the patient appears mildly diaphoretic as well as mildly tachypnic awake alert oriented speaking in complete sentences no acute distress HEENT: Moist mucous membranes no elevation and CVP CARDIOVASCULAR: S1 S2 tachycardic no additional heart sounds appreciated. RESPIRATORY: Clear to auscultation bilaterally. ABDOMINAL: Bowel sounds present abdomen soft and nontender, obese EXTREMITIES: No clubbing cyanosis or edema there is firmness and tenderness to palpation over her left bicep NEUROLOGICAL: Spontaneously moves all 4 extremities cranial 2 through 12 grossly intact no gross focal deficits appreciated PSYCHOLOGICAL: Appropriate LABORATORY DATA: See below. MICROBIOLOGY: Please see below. IMAGIN. There are multiple bilateral pulmonary emboli with a large is emboli demonstrated in the distal right pulmonary artery as well as numerous branches in the upper lobes, both lower lobes, and lingular lobe. 2. There is no aortic dissection or aneurysm. 3. Small hiatal hernia. 4. There is bilateral adrenal hyperplasia. 5. Cardiac findings compatible with right heart strain. ASSESSMENT & PLAN: This is a 78-year-old female with pulmonary embolism PROBLEMS: 1. Pulmonary embolism: She is hypoxic tachycardic symptomatic she does have an abnormal troponin as well as evidence of right ventricular strain on CT imaging. I'll order an echocardiogram the ER providers ordered her for therapeutic Lovenox dosing which I think is appropriate we will continue. I'll check a duplex of the bilateral lower extremities as well as the left upper extremity given the swelling and tenderness to her left bicep. I'll put her on bed rest with bathroom privileges nasal cannula to keep her sats greater than 90%. I'll withhold her antihypertensives at this time I will withhold any further IV fluids. Should she worsen symptomatically began to drop her pressures would strongly consider catheter directed TPA versus systemic TPA. The etiology of her PE is not immediately clear no recent surgeries no known cancer however her 3 breast lumps certainly are suspicious given her advanced age for an occult malignancy. I will send a hypercoagulable workup however I think it is less likely given her presentation. Given her left bicep swelling and tenderness she certainly could have a clot there that has migrated 2. Gastroesophageal reflux disease: Continue with omeprazole 3. Hypertension: I will hold her lisinopril hydrochlorothiazide combo as well as amlodipine only she become significantly hypertensive when I resume in the setting of her acute PE she has received IV fluids in the emergency room which I will not continue 4. Osteoarthritis: Continue with meloxicam 5. Dyslipidemia: Continue with Pravachol DVT PROPHYLAXIS: Anticoagulation with Lovenox DISPOSITION: Patient is admitted to the progressive care unit on telemetry [facility] inpatient status Vital Signs Vital Signs Date Time Temp Pulse Resp B/P (MAP) Pulse Ox O2 Delivery O2 Flow Rate FiO2 04/06/19 16:06 Room Air 04/06/19 15:45 04/06/19 14:40 96.8 134 20 92 Laboratory Data Labs 24H Laboratory Tests 2 04/06/19 15:05: Immature Granulocyte % (Auto) 0.3, White Blood Count 12.4H, Red Blood Count 5.44H, Hemoglobin 15.7H, Hematocrit 46.9, Mean Corpuscular Volume 86.2, Mean Corpuscular Hemoglobin 28.9, Mean Corpuscular Hemoglobin Concent 33.5, Red Cell Distribution Width 14.0, Platelet Count 216, Neutrophils (%) (Auto) 73.2H, Lymphocytes (%) (Auto) 19.1L, Monocytes (%) (Auto) 6.4H, Eosinophils (%) (Auto) 0.7, Basophils (%) (Auto) 0.3, Neutrophils # (Auto) 9.1H, Lymphocytes # (Auto) 2.4, Monocytes # (Auto) 0.8, Eosinophils # (Auto) 0.1, Basophils # (Auto) 0.0, Nucleated Red Blood Cells % (auto) 0.0, Prothrombin Time 12.7, Prothromb Time International Ratio 0.98, D-Dimer, Quantitative 3874.04H, Blood Gas Bicarbonate Standard 23.9, Venous Blood pH 7.394, Venous Blood Partial Pressure CO2 42.0, Venous Blood Partial Pressure O2 41.0, Venous Blood Total Carbon Dioxide 26.4, Venous Blood HCO3 25.1, Venous Blood Oxygen Saturation 74.7, Venous Blood Base Excess 0.1, Anion Gap 9, Glomerular Filtration Rate > 60.0, Calcium Level 9.4, Aspartate Amino Transf (AST/SGOT) 27, Alanine Aminotransferase (ALT/SGPT) 38, Alkaline Phosphatase 98, Total Bilirubin 0.3, Direct Bilirubin 0.1, Total Creatine Kinase 122, Creatine Kinase MB 3.2, Creatine Kinase MB Relative Index 2.62, Troponin I 0.25H, RI-Dso-E-Type Natriuretic Peptide 1928H, Total Protein 7.3, Albumin 3.9, Albumin/Globulin Ratio 1.15 04/06/19 16:15: Lactic Acid Level 1.7 CBC/BMP Laboratory Tests 04/06/19 15:05 Red Blood Count 5.44 H, Mean Corpuscular Volume 86.2, Mean Corpuscular Hemoglobin 28.9, Mean Corpuscular Hemoglobin Concent 33.5, Red Cell Distribution Width 14.0, Neutrophils (%) (Auto) 73.2 H, Lymphocytes (%) (Auto) 19.1 L, Monocytes (%) (Auto) 6.4 H, Eosinophils (%) (Auto) 0.7, Basophils (%) (Auto) 0.3, Neutrophils # (Auto) 9.1 H, Lymphocytes # (Auto) 2.4, Monocytes # (Auto) 0.8, Eosinophils # (Auto) 0.1, Basophils # (Auto) 0.0 Microbiology Microbiology 04/06/19 Blood Culture, Received Pending Home Medications Scheduled Alpha Tocopheryl Acid Succinat (Vitamin E) 400 Unit Tab, 400 UNIT PO DAILY Amlodipine Besylate (Amlodipine Besylate) 10 Mg Tab, 10 MG PO DAILY Ascorbic Acid (Vitamin C) 500 Mg Tab, 500 MG PO DAILY Aspirin (Aspir 81) 81 Mg Tab, 81 MG PO DAILY Calcium Polycarbophil (Fiber-Caps) 625 Mg Tab, 625 MG PO DAILY Cyanocobalamin (Vitamin B-12) (Vitamin B-12) 1,000 Mcg Tab, 1,000 MCG PO DAILY Lisinopril/Hydrochlorothiazide (Lisinopril-Hctz 20-25 mg Tab) 1 Tab Tab, 1 TAB PO DAILY Magnesium Oxide (Magnesium Oxide) 250 Mg Tab, 250 MG PO DAILY Meloxicam (Meloxicam) 7.5 Mg Tab, 7.5 MG PO DAILY Omeprazole (Omeprazole) 40 Mg Cap, 40 MG PO DAILY Pravastatin Sodium (Pravastatin Sodium) 20 Mg Tab, 20 MG PO DAILY Pyridoxine HCl (Vitamin B6) 200 Mg Tab, 200 MG PO DAILY Allergies Coded Allergies: soap (Verified Allergy, Intermediate, ZEST - ITCHY, 04/06/19) A-FIB/CHADSVASC A-FIB History Current/History of A-Fib/PAF?: No SANTO SAN MD Apr 06, 2019 18:21
[2019-04-06] MEDS ORDERED: FIBE625T PO (18:38)
[2019-04-06] MEDS ORDERED: VITA400C53 PO (18:38)
[2019-04-06] MEDS ORDERED: MELO15TA28 PO (18:38)
[2019-04-06] MEDS ORDERED: PYRI50TA8 PO (18:38)
[2019-04-06] MEDS ORDERED: D-10TAB2 PO (18:39)
--- NOTE | 2019-04-06 18:55 | REP ---
REASON: Dyspnea. COMPARISON: 05/15/2017. FINDINGS: The technique utilized in obtaining the radiograph has magnified the cardiac silhouette and accentuated the interstitial markings. The superior mediastinal structures are midline. The cardiac silhouette is unremarkable in size, shape, and position. The diaphragmatic surfaces of the lungs are regular, and the costophrenic angles are clear. The pulmonary feldman are clear. The imaged osseous structures are intact. The cardiac silhouette is accentuated by technique. IMPRESSION: There is no acute cardiopulmonary disease. Electronically Signed by Jacob Vences DO 04/07/2019 09:58 A
[2019-04-06 19:32] LABS: ERYTHROCYTE SEDIMENTATION RATE 3 mm/hr (0-30)
--- NOTE | 2019-04-06 19:50 | REPVR ---
EXAM: US Duplex Bilateral Lower Extremity Veins EXAM DATE/TIME: 04/06/2019 7:43 PM CLINICAL HISTORY: 78 years old, female; Pain; Leg, upper and leg, lower; Bilateral; Prior surgery; Surgery date: 6+ months; Surgery type: Lt knee replacement approx. 3 years ago; Additional info: R/O dvt TECHNIQUE: Imaging protocol: Real-time duplex ultrasound of the Bilateral Lower Extremities with 2-D maxwell scale, color Doppler flow and spectral waveform analysis with image documentation. Complete exam focused on the bilateral lower extremity veins. COMPARISON: No relevant prior studies available. FINDINGS: Right deep veins: Unremarkable. The common femoral, femoral, proximal profunda femoral and popliteal veins are patent without thrombus. Normal Doppler waveforms. Normal compressibility and/or augmentation response. Right superficial veins: Saphenofemoral junction is patent without thrombus. Left deep veins: Nonocclusive thrombus limited to the left popliteal vein. Remaining veins in the deep system are unremarkable with normal compressibility and Doppler flow. Left superficial veins: Saphenofemoral junction is patent without thrombus. Soft tissues: Unremarkable. IMPRESSION: Nonocclusive thrombus demonstrated in the left popliteal vein. Otherwise unremarkable. Electronically signed by: Ciro Tan On 04/06/2019 19:49:58 PM
--- NOTE | 2019-04-06 19:51 | REPVR ---
EXAM: US Duplex Left Upper Extremity Veins, Limited EXAM DATE/TIME: 04/06/2019 7:43 PM CLINICAL HISTORY: 78 years old, female; Pain; Arn, upper; Left; Additional info: Concern for dvt lue TECHNIQUE: Imaging protocol: Real-time Duplex ultrasound of the Left Upper Extremity with 2-D maxwell scale, color Doppler flow and spectral waveform analysis with image documentation. Limited exam focused on the left upper extremity veins. COMPARISON: No relevant prior studies available. FINDINGS: Left deep veins: Unremarkable. Axillary and brachial veins are patent throughout without thrombus. Normal Doppler waveforms. Normal compressibility and/or augmentation response. Visualized internal jugular and subclavian veins are patent. Left superficial veins: Unremarkable. Visualized cephalic and basilic veins are patent without thrombus. Soft tissues: Unremarkable. IMPRESSION: No acute findings. No evidence of deep vein thrombosis. Electronically signed by: Ciro Tan On 04/06/2019 19:50:57 PM
[2019-04-06 20:00] VITALS: O2SAT 88
[2019-04-06 20:21] VITALS: BP 141/84
[2019-04-06 21:00] VITALS: O2SAT 95
[2019-04-06 22:00] VITALS: O2SAT 94
[2019-04-06 23:00] VITALS: O2SAT 95
[2019-04-06 23:59] VITALS: BP 132/63
[2019-04-07] VITALS (24 sets, daily range): BP systolic 127–162; BP diastolic 62–90; O2SAT 81–98
[2019-04-07 03:21] LABS: HEMATOCRIT 41.6 % (36.0-47.0); HEMOGLOBIN 14.1 g/dl (12.0-15.5); MEAN CORPUSCULAR HEMOGLOBIN 28.5 pg (27.0-33.0); MEAN CORPUSCULAR HGB CONC 33.9 g/dl (32.0-36.5); PLATELET COUNT, AUTOMATED 187 10^3/uL (150-450); RED BLOOD COUNT 4.95 10^6/uL (4.00-5.40); WHITE BLOOD COUNT 10.6 10^3/uL (4.0-10.0)
[2019-04-07 03:58] LABS: BLOOD UREA NITROGEN 16 MG/DL (7-18); CALCIUM LEVEL 9.3 MG/DL (8.8-10.2); CARBON DIOXIDE LEVEL 25 MEQ/L (21-32); CHLORIDE LEVEL 107 MEQ/L (98-107); CREATININE FOR GFR 0.94 MG/DL (0.55-1.30); GLOMERULAR FILTRATION RATE > 60.0 (>39); GLUCOSE, FASTING 275 MG/DL (70-100); POTASSIUM SERUM 3.6 MEQ/L (3.5-5.1); SODIUM LEVEL 140 MEQ/L (136-145); TROPONIN I 0.15 NG/ML (< 0.10)
[2019-04-07] MEDS: ENOXAPARIN 100MG/1ML SYRINGE (J1650) SC SCH ×2 (08:10→20:12)
[2019-04-07] MEDS: OMEPRAZOLE 20 MG CAP PO SCH (08:10)
[2019-04-07] MEDS ORDERED: MELOXICAM (MOBIC) 7.5 MG TAB PO SCH (09:00)
[2019-04-07] MEDS: PRAVASTATIN 10 MG TAB PO SCH (09:15)
--- NOTE | 2019-04-07 10:52 | IPNPDOC ---
Subjective Date Seen The patient was seen on 04/07/19. Subjective Chief Complaint/HPI improved dyspnea since admission Constitutional: Denies: Chills Eyes: Denies: Pain ENT: Denies: Head Aches, Ear Pain Skin: Denies: Rash Pulmonary: Reports: Dyspnea; Denies: Cough Cardiovascular: Denies: Chest Pain Gastrointestinal: Denies: Nausea, Vomiting Genitourinary: Denies: Dysuria Objective Physical Examination General Exam: Positive: Alert Eye Exam: Positive: PERRLA Neck Exam: Negative: JVD Chest Exam: Positive: Clear to auscultation Heart Exam: Positive: Rate Normal Abdomen Exam: Positive: Normal bowel sounds Extremity Exam: Negative: Edema Psych Exam: Positive: Mental status NL Assessment /Plan Problems (1) Pulmonary emboli Status: Acute Response to Treatment: Stable Problem Text: continues therapeutic LMWH thrombophilia salazar P (doubt significant given no previous VTE at 78) ? [id number] mammo P regarding abnormal screening-check tumor markers, tc CT AP 04/07 plan change to DOAC if remains HD stable, obviously dc fajardo 15! 04/07 BLE DVT US: Nonocclusive thrombus limited to the left popliteal vein 04/06/19 CTA chest: 1. There are multiple bilateral pulmonary emboli with a large is emboli demonstrated in the distal right pulmonary artery as well as numerous branches in the upper lobes, both lower lobes, and lingular lobe. 2. There is no aortic dissection or aneurysm. 3. Small hiatal hernia. 4. There is bilateral adrenal hyperplasia. 5. Cardiac findings compatible with right heart strain. (2) Diabetes Status: Chronic Problem Text: diet controlled (3) Hyperlipemia Status: Chronic (4) HTN (hypertension) Status: Chronic Problem Text: HD: amlo 10, lisin/HCTZ 04/07 restarted amlo 10 (5) Elevated troponin Status: Acute Response to Treatment: Improving Problem Text: favor 2 R heart strain 2 PE 04/07 TTE P 04/07 0.15 04/06 0.25 Plan/VTE VTE Prophylaxis Ordered?: Yes VS, I&O, 24H, Fishbone Vital Signs/I&O Vital Signs Date Time Temp Pulse Resp B/P (MAP) Pulse Ox O2 Delivery O2 Flow Rate FiO2 04/07/19 08:00 96.8 109 20 162/90 (114) 95 2.0 04/07/19 04:00 Nasal Cannula I&O- Last 24 Hours up to 6 AM 04/07/19 06:00 Intake Total 730 ml Output Total 600 ml Balance 130 ml Laboratory Data 24H LABS Laboratory Tests 2 04/06/19 15:05: Immature Granulocyte % (Auto) 0.3, White Blood Count 12.4H, Red Blood Count 5.44H, Hemoglobin 15.7H, Hematocrit 46.9, Mean Corpuscular Volume 86.2, Mean Corpuscular Hemoglobin 28.9, Mean Corpuscular Hemoglobin Concent 33.5, Red Cell Distribution Width 14.0, Platelet Count 216, Neutrophils (%) (Auto) 73.2H, Lymphocytes (%) (Auto) 19.1L, Monocytes (%) (Auto) 6.4H, Eosinophils (%) (Auto) 0.7, Basophils (%) (Auto) 0.3, Neutrophils # (Auto) 9.1H, Lymphocytes # (Auto) 2.4, Monocytes # (Auto) 0.8, Eosinophils # (Auto) 0.1, Basophils # (Auto) 0.0, Nucleated Red Blood Cells % (auto) 0.0, Erythrocyte Sedimentation Rate 3, Prothrombin Time 12.7, Prothromb Time International Ratio 0.98, D-Dimer, Quantitative 3874.04H, Blood Gas Bicarbonate Standard 23.9, Venous Blood pH 7.394, Venous Blood Partial Pressure CO2 42.0, Venous Blood Partial Pressure O2 41.0, Venous Blood Total Carbon Dioxide 26.4, Venous Blood HCO3 25.1, Venous Blood Oxygen Saturation 74.7, Venous Blood Base Excess 0.1, Anion Gap 9, Glomerular Filtration Rate > 60.0, Calcium Level 9.4, Aspartate Amino Transf (AST/SGOT) 27, Alanine Aminotransferase (ALT/SGPT) 38, Alkaline Phosphatase 98, Total Bilirubin 0.3, Direct Bilirubin 0.1, Total Creatine Kinase 122, Creatine Kinase MB 3.2, Creatine Kinase MB Relative Index 2.62, Troponin I 0.25H, C- Reactive Protein, Quantitative 1.70H, GJ-Jle-P-Type Natriuretic Peptide 1928H, Total Protein 7.3, Albumin 3.9, Albumin/Globulin Ratio 1.15 04/06/19 16:15: Lactic Acid Level 1.7 04/06/19 20:17: 04/06/19 21:00: Troponin I 0.22H 04/07/19 03:12: Nucleated Red Blood Cells % (auto) 0.0, Anion Gap 8, Glomerular Filtration Rate > 60.0, Blood Urea Nitrogen 16, Creatinine 0.94, Sodium Level 140, Potassium Level 3.6, Chloride Level 107, Carbon Dioxide Level 25, Calcium Level 9.3, Troponin I 0.15#H CBC/BMP Laboratory Tests 04/06/19 15:05 Red Blood Count 5.44 H, Mean Corpuscular Volume 86.2, Mean Corpuscular Hemoglobin 28.9, Mean Corpuscular Hemoglobin Concent 33.5, Red Cell Distribution Width 14.0, Neutrophils (%) (Auto) 73.2 H, Lymphocytes (%) (Auto) 19.1 L, Monocytes (%) (Auto) 6.4 H, Eosinophils (%) (Auto) 0.7, Basophils (%) (Auto) 0.3, Neutrophils # (Auto) 9.1 H, Lymphocytes # (Auto) 2.4, Monocytes # (Auto) 0.8, Eosinophils # (Auto) 0.1, Basophils # (Auto) 0.0 04/07/19 03:12 Red Blood Count 4.95, Mean Corpuscular Volume 84.0, Mean Corpuscular Hemoglobin 28.5, Mean Corpuscular Hemoglobin Concent 33.9, Red Cell Distribution Width 13.9, Calcium Level 9.3 Microbiology Microbiology 04/06/19 Blood Culture, Received Pending 04/06/19 Blood Culture, Received Pending Jose Deleon M.D. Apr 07, 2019 10:52
[2019-04-07] MEDS: amLODIPine 10 MG TAB PO SCH (12:57)
[2019-04-08] VITALS (23 sets, daily range): BP systolic 104–151; BP diastolic 52–73; O2SAT 86–96
[2019-04-08 06:36] LABS: HEMOGLOBIN 13.3 g/dl (12.0-15.5); MEAN CORPUSCULAR HEMOGLOBIN 28.9 pg (27.0-33.0); MEAN CORPUSCULAR HGB CONC 33.3 g/dl (32.0-36.5); MEAN CORPUSCULAR VOLUME 86.8 fl (80.0-96.0); PLATELET COUNT, AUTOMATED 182 10^3/uL (150-450); RED BLOOD COUNT 4.61 10^6/uL (4.00-5.40); WHITE BLOOD COUNT 13.3 10^3/uL (4.0-10.0)
[2019-04-08 07:06] LABS: BLOOD UREA NITROGEN 16 MG/DL (7-18); CALCIUM LEVEL 8.9 MG/DL (8.8-10.2); CARBON DIOXIDE LEVEL 27 MEQ/L (21-32); CHLORIDE LEVEL 109 MEQ/L (98-107); CREATININE FOR GFR 0.76 MG/DL (0.55-1.30); GLOMERULAR FILTRATION RATE > 60.0 (>39); GLUCOSE, FASTING 117 MG/DL (70-100); POTASSIUM SERUM 3.3 MEQ/L (3.5-5.1); SODIUM LEVEL 143 MEQ/L (136-145)
--- NOTE | 2019-04-08 07:19 | ECHO ---
DATE OF PROCEDURE: 04/07/2019 DATE OF : 1940 AGE: 78 GENDER: Female. HEIGHT: 60 inches. WEIGHT: 196 pounds. BODY SURFACE AREA: 1.85 meters squared. LOCATION: Inpatient PCU room 3228. REFERRING PHYSICIAN: Dr. Annika Olivera INDICATION: Shortness of breath. Pulmonary embolism. MEASUREMENTS: 2-D MEASUREMENTS: RV - 3.2 cm LV - 3.7 cm Septum 1.1 cm Posterior wall 1.1 cm LA - 3.9 cm LVEF 75% DOPPLER MEASUREMENTS: AV - 1.38 m/s LVOT - 0.98 m/s LVOT - 1.8 cm MV-E 80, A 128, E/E ratio 0.6 E prime 7.9, A prime 12.5, E/E prime ratio 10 PV - 0.7 m/s Pulmonary artery acceleration time 95 ms RVSP 49 mmHg IVC - 2.1 cm COMMENTS: Sinus rhythm/sinus tachycardia rate averaging 100 bpm. No intraventricular conduction disturbance. M-mode and two-dimensional echocardiography was performed with pulsed, continuous wave, color flow and tissue Doppler studies. Normal left ventricular size with wall thickness upper limits of normal with hyperkinetic wall motion. Borderline left atrial enlargement with Doppler evidence of impairment of LV diastolic function but currently normal estimated mean left atrial pressure. Normal right heart chamber sizes and motion with Doppler evidence of moderate pulmonary hypertension. Normal IVC size with reduced respiratory collapse suggestive an elevated central venous pressure. Normal appearing and functioning valvular structures. Normal aortic root size. No apparent intracardiac mass or pericardial effusion.
[2019-04-08] MEDS ORDERED: RIVAROXABAN 15 MG TAB (XARELTO) PO SCH (08:00)
[2019-04-08] MEDS ORDERED: SLF 3 ML SYR IV PRN (08:15)
[2019-04-08] MEDS: PRAVASTATIN 10 MG TAB PO SCH (09:41)
[2019-04-08] MEDS: ENOXAPARIN 100MG/1ML SYRINGE (J1650) SC SCH (09:42)
[2019-04-08] MEDS: OMEPRAZOLE 20 MG CAP PO SCH (09:42)
[2019-04-08] MEDS: amLODIPine 10 MG TAB PO SCH (09:43)
[2019-04-08] MEDS ORDERED: POTASSIUM CHLORIDE 10 MEQ SR TABLET PO ONE (09:45)
--- NOTE | 2019-04-08 09:53 | IPNPDOC ---
Subjective Date Seen The patient was seen on 04/08/19. Subjective Chief Complaint/HPI Pt this morning without new concerns. She states that she is breathing fine. Denies SOB, cough. She was without O2 most of the day yest, sats dropped overnight so this was resumed. General: Denies: Fatigue Constitutional: Denies: Chills, Fever ENT: Denies: Head Aches Pulmonary: Denies: Dyspnea, Cough Cardiovascular: Denies: Chest Pain, Palpitations Gastrointestinal: Denies: Nausea, Vomiting, Diarrhea Neurological: Denies: Weakness Psych: Reports: Mood Normal Objective Physical Examination General Exam: Positive: Alert, No Acute Distress Eye Exam: Positive: PERRLA ENT Exam: Positive: Mucous membr. moist/pink Neck Exam: Negative: JVD Chest Exam: Positive: Clear to auscultation, Normal air movement Heart Exam: Positive: Rate Normal, Normal S1, Normal S2 Abdomen Exam: Positive: Normal bowel sounds Extremity Exam: Negative: Edema Psych Exam: Positive: Mental status NL, Mood NL Assessment /Plan Problems (1) Pulmonary emboli Status: Acute Response to Treatment: Stable Problem Text: 04/08 Pt will be transitioned to Xarelto 15 mg BID x21 days, then transition to 20 mg daily. Rx sent to [facility] for approval, PFS aware at care rounds. continues therapeutic LMWH thrombophilia salazar P (doubt significant given no previous VTE at 78) ? [id number] mammo P regarding abnormal screening-check tumor markers, tc CT AP 04/07 plan change to DOAC if remains HD stable, obviously dc fajardo 15! 04/07 BLE DVT US: Nonocclusive thrombus limited to the left popliteal vein 04/06/19 CTA chest: 1. There are multiple bilateral pulmonary emboli with a large is emboli demonstrated in the distal right pulmonary artery as well as numerous branches in the upper lobes, both lower lobes, and lingular lobe. 2. There is no aortic dissection or aneurysm. 3. Small hiatal hernia. 4. There is bilateral adrenal hyperplasia. 5. Cardiac findings compatible with right heart strain. (2) Elevated troponin Status: Acute Response to Treatment: Improving Problem Text: favor 2 R heart strain 2 PE 04/07 TTE P 04/07 0.15 04/06 0.25 (3) Diabetes Status: Chronic Problem Text: diet controlled (4) Hyperlipemia Status: Chronic (5) HTN (hypertension) Status: Chronic Problem Text: HD: amlo 10, lisin/HCTZ 04/07 restarted amlo 10 (6) Breast mass, right Status: Acute Response to Treatment: Stable Problem Text: found on AWV just before admission. imaging has not yet been performed. Plan/VTE VTE Prophylaxis Ordered?: Yes VS, I&O, 24H, Fishbone Vital Signs/I&O Vital Signs Date Time Temp Pulse Resp B/P (MAP) Pulse Ox O2 Delivery O2 Flow Rate FiO2 04/08/19 09:43 99 143/65 04/08/19 08:00 97.5 18 97 2.0 04/08/19 05:00 Nasal Cannula I&O- Last 24 Hours up to 6 AM 04/08/19 05:59 Intake Total 1000 ml Output Total 650 ml Balance 350 ml Laboratory Data 24H LABS Laboratory Tests 2 04/07/19 11:16: 04/08/19 06:03: Nucleated Red Blood Cells % (auto) 0.0, Anion Gap 7L, Glomerular Filtration Rate > 60.0, Blood Urea Nitrogen 16, Creatinine 0.76, Sodium Level 143, Potassium Level 3.3L, Chloride Level 109H, Carbon Dioxide Level 27, Calcium Level 8.9 CBC/BMP Laboratory Tests 04/08/19 06:03 Red Blood Count 4.61, Mean Corpuscular Volume 86.8, Mean Corpuscular Hemoglobin 28.9, Mean Corpuscular Hemoglobin Concent 33.3, Red Cell Distribution Width 14.2, Calcium Level 8.9 Microbiology Microbiology 04/06/19 Blood Culture - Preliminary, Resulted No growth after 24 hours . All specim... 04/06/19 Blood Culture - Preliminary, Resulted No growth after 24 hours . All specim... HAKEEM EWING PA-C Apr 08, 2019 09:53 Chirag Swift MD Apr 08, 2019 12:18
[2019-04-08] MEDS: SLF 3 ML SYR IV SCH ×2 (13:13→22:29)
[2019-04-08] MEDS ORDERED: ACETAMINOPHEN TAB 650MG DOSE (2X325MG) PO PRN (16:00)
[2019-04-08] MEDS: RIVAROXABAN 15 MG TAB (XARELTO) PO SCH (17:29)
[2019-04-09] VITALS (13 sets, daily range): BP systolic 126–132; BP diastolic 59–75; O2SAT 91–98
[2019-04-09 05:18] LABS: HEMATOCRIT 39.1 % (36.0-47.0); HEMOGLOBIN 12.9 g/dl (12.0-15.5); MEAN CORPUSCULAR VOLUME 87.9 fl (80.0-96.0); PLATELET COUNT, AUTOMATED 173 10^3/uL (150-450); RED BLOOD COUNT 4.45 10^6/uL (4.00-5.40); WHITE BLOOD COUNT 8.9 10^3/uL (4.0-10.0)
[2019-04-09 05:42] LABS: BLOOD UREA NITROGEN 16 MG/DL (7-18); CALCIUM LEVEL 8.4 MG/DL (8.8-10.2); CARBON DIOXIDE LEVEL 27 MEQ/L (21-32); CHLORIDE LEVEL 112 MEQ/L (98-107); GLOMERULAR FILTRATION RATE > 60.0 (>39); GLUCOSE, FASTING 118 MG/DL (70-100); POTASSIUM SERUM 3.8 MEQ/L (3.5-5.1); SODIUM LEVEL 145 MEQ/L (136-145)
[2019-04-09] MEDS: SLF 3 ML SYR IV SCH (05:44)
[2019-04-09] MEDS: RIVAROXABAN 15 MG TAB (XARELTO) PO SCH (08:20)
[2019-04-09] MEDS: PRAVASTATIN 10 MG TAB PO SCH (08:20)
[2019-04-09] MEDS: amLODIPine 10 MG TAB PO SCH (08:20)
[2019-04-09] MEDS: OMEPRAZOLE 20 MG CAP PO SCH (08:20)
[2019-04-09] MEDS ORDERED: XARE20TA PO (09:18)
[2019-04-09] MEDS ORDERED: XARE15TA PO (09:18)
[2019-04-09 10:13] LABS: DRVV SCREEN 40.8 SEC
[2019-04-09 10:22] LABS: CA 125 3.4 U/ML (<30.2); CA15-3 ANTIGEN 16.8 U/ML (<32.4); CA19-9 TUMOR MARKER,CARBOHYDRA 9.9 U/ML (<35.0)
--- NOTE | 2019-04-09 19:00 | DSES ---
DATE OF ADMISSION: 04/06/2019 DATE OF DISCHARGE: 04/09/2019 PRIMARY CARE PROVIDER: Dr. Chirag Swift ATTENDING PHYSICIAN: Dr. Chirag Swift HISTORY: This is a 78-year-old female patient who presented to [facility] Emergency Room complaining of shortness of breath since three days prior to her presentation. She noted that she was seen by her primary care provider (PCP) a week prior and was noted to have good saturation. She was at home on Monday doing her regular activities and began to notice that she was more short of breath with exertion, progressively worsened without any improvement which she initially attributed to the weather and humidity. Although on the day of presentation, she began to have a burning sensation in her central chest and therefore decided to present to the emergency room for further investigation. She was found to be hypoxic and tachycardic with multiple bilateral pulmonary emboli with a large emboli in the distal right pulmonary artery as well numerous branches of the upper lobes, both lower lobes and the lingular lobe. She was started on therapeutic doses of Lovenox and a hypercoagulable workup was initiated. She was admitted to the progressive care unit for further management and monitoring. During her admission, she has remained medically stable. She underwent echocardiogram which revealed normal ventricular size with wall thickness upper limits of normal with hyperkinetic wall motion, borderline left atrial enlargement with Doppler evidence of impairment of left ventricular diastolic function, currently normal estimated mean left atrial pressure, normal right heart chamber sizes and motion with Doppler evidence of moderate pulmonary hypertension, normal IV size with reduced respiratory clots suggestive of an elevated central venous pressure (CVP), normal-appearing and functioning valvular structures, normal aortic root size. Her telemetry has remained normal during her hospitalization. She was hypoxic on admission. Her oxygen has been weaned to nocturnal use only at two liters to maintain oxygen saturations greater than 92%. She has been seen by physical therapy who feel as though she is safe and ready for discharge. The patient is eager to return home. She has no remaining concerns. Her hypercoagulable workup remains pending. DISCHARGE DIAGNOSES: Include: 1. Bilateral pulmonary emboli. 2. Elevated troponin, likely secondary to right heart strain from pulmonary embolism (PE). 3. Diabetes mellitus. 4. Hyperlipidemia. 5. Hypertension. 6. Right breast mass. She has followup scheduled as an outpatient. DISCHARGE MEDICATIONS: Include: - Xarelto 15 mg by mouth twice a day times 20 days, will complete 21 days total and then start Xarelto 20 mg daily - amlodipine 5 mg daily - ascorbic acid 500 mg by mouth daily - aspirin 81 mg daily - FiberCon 625 mg by mouth daily - vitamin D3 1000 units by mouth daily - vitamin B12 1000 mcg by mouth daily - lisinopril/hydrochlorothiazide 20/25 one tablet by mouth daily - magnesium oxide 250 mg daily - meloxicam 15 mg daily - omeprazole 40 mg daily - pravastatin 10 mg daily - vitamin B6 50 mg by mouth daily - vitamin E 400 units by mouth daily DISCHARGE INSTRUCTIONS: Followup with Dr. Swift as an outpatient in one week. Activity should be as tolerated. Diet should be no-added salt. She will need nocturnal oxygen as an outpatient.
[2019-04-29] MEDS ORDERED: RIVAROXABAN 20 MG TAB (XARELTO) PO SCH (18:00)
[2019-04-30] MEDS ORDERED: RIVAROXABAN 20 MG TAB (XARELTO) PO SCH (18:00)
== END 2019-04-09 13:50 | disposition home or self-care (01) | DRG 176 ==
LOC: M ED 14:40 → M ED INP 18:06 → M PCU 19:49
PROVIDERS: ADMIT Internal Medicine; ATTEND Family Medicine
DX: I26.99 Other pulmonary embolism without acute cor pulmonale (principal); I82.432 Acute embolism and thrombosis of left popliteal vein; E11.9 Type 2 diabetes mellitus without complications; E78.5 Hyperlipidemia, unspecified; I10 Essential (primary) hypertension; N63.0 Unspecified lump in unspecified breast; Z79.899 Other long term (current) drug therapy; Z79.82 Long term (current) use of aspirin; M19.90 Unspecified osteoarthritis, unspecified site; K21.9 Gastro-esophageal reflux disease without esophagitis; K44.9 Diaphragmatic hernia without obstruction or gangrene

== ENCOUNTER → 2019-05-27 | Outpatient (REF) | payer MEDICARE ==
[~2019-05-27] MED LIST changes: +D-10TAB2 PO; +FIBE625T PO; +MELO15TA28 PO; +PYRI50TA8 PO; +VITA400C53 PO; +XARE15TA PO; +XARE20TA PO
[2019-05-27 14:07] LABS: MALB URINE SIEMENS 7.4 MG/L; MAU/CREAT RATIO 6.3 MCG/MG (0.0-30.0)
[2019-05-27 14:22] LABS: HEMOGLOBIN A1c 6.7 %
== END ==
LOC: M SFHCCLAY 08:37
PROVIDERS: ATTEND Nurse Practitioner Family
DX: E11.69 Type 2 diabetes mellitus with other specified complication (principal); M85.9 Disorder of bone density and structure, unspecified; Z79.899 Other long term (current) drug therapy; Z79.82 Long term (current) use of aspirin

== ENCOUNTER → 2019-07-12 | Outpatient (REF) | payer MEDICARE ==
[~2019-07-12] MED LIST changes: -OMEP40CA2 PO; +OMEP40CA97 PO
[2019-07-12 11:51] LABS: HEMATOCRIT 47.3 % (36.0-47.0); MEAN CORPUSCULAR HEMOGLOBIN 28.2 pg (27.0-33.0); MEAN CORPUSCULAR HGB CONC 31.7 g/dl (32.0-36.5); MEAN CORPUSCULAR VOLUME 89.1 fl (80.0-96.0); PLATELET COUNT, AUTOMATED 240 10^3/uL (150-450); RED BLOOD COUNT 5.31 10^6/uL (4.00-5.40)
[2019-07-12 12:10] LABS: HEMOGLOBIN A1c 7.1 %
[2019-07-12 12:48] LABS: BLOOD UREA NITROGEN 13 MG/DL (7-18); CALCIUM LEVEL 9.7 MG/DL (8.8-10.2); CARBON DIOXIDE LEVEL 31 MEQ/L (21-32); CHLORIDE LEVEL 102 MEQ/L (98-107); CREATININE FOR GFR 0.93 MG/DL (0.55-1.30); GLOMERULAR FILTRATION RATE > 60.0 (>39); GLUCOSE, FASTING 111 MG/DL (70-100); POTASSIUM SERUM 4.1 MEQ/L (3.5-5.1); SODIUM LEVEL 140 MEQ/L (136-145)
[2019-07-12 12:49] LABS: ALT/SGPT 33 U/L (12-78); BILIRUBIN,TOTAL 0.5 MG/DL (0.2-1.0); CHOLESTEROL LEVEL 174 MG/DL (<200); CHOLESTEROL RISK RATIO 2.558 (<5); HDL CHOLESTEROL 68 MG/DL (>40); LDL CHOLESTEROL 81 MG/DL (<100); NON-HDL-C 106 MG/DL; TOTAL PROTEIN 7.4 GM/DL (6.4-8.2); TRIGLYCERIDES LEVEL 125 MG/DL (<150)
== END ==
LOC: M SFHCCLAY 09:26
PROVIDERS: ATTEND Nurse Practitioner Family
DX: E11.69 Type 2 diabetes mellitus with other specified complication (principal); E78.5 Hyperlipidemia, unspecified; I82.402 Acute embolism and thrombosis of unspecified deep veins of left lower extremity
CPT/HCPCS: 80053; 80061; 83036; 85027; G0463

== ENCOUNTER → 2019-08-10 | Outpatient (CLI) | payer MEDICARE ==
--- NOTE | 2019-08-15 19:08 | SLEEPCENT ---
DATE OF STUDY: 08/10/2019 ORDERED BY: ENDER Denson Nocturnal polysomnography was performed for evaluation of sleep physiology in this patient with a history of excessive somnolence, snoring, and nonrestorative sleep who has comorbidities of pulmonary embolic disease, hypertension, and hyperlipidemia. 7 hours and 55 minutes of data were reviewed. There 353 minutes of sleep identified. Sleep latency was normal at 36 minutes. Rapid eye movement (REM) latency was short at 92 minutes. Sleep architecture showed some fragmentation. There were 4 REM cycles noted. Overall sleep efficiency was 74.9%. The electrocardiogram showed a sinus rhythm with an average heart rate of 64 beats per minute. Electroencephalogram (EEG) showed reasonably normal waveforms for awake and sleep. There were 77 respiratory events identified of 10 seconds in duration or greater for an apnea-hypopnea index of 13.1. The events were primarily obstructive not exclusive to sleep stage nor body posture. Arousals from respiratory events occurred 3.1 times per hour and oxygen desaturations were seen to 80%. There was also some limb activity, at least 3 trains of 30 events but limb movement arousal index was only 6.6. IMPRESSION: Obstructive sleep apnea syndrome (G4 7.33). Apnea-hypopnea index 13.1. RECOMMENDATIONS: The patient should be encouraged to return to the sleep disorder center for pressure therapy. In the interim, alcohol and sedative avoidance should be practiced and caution exercised during the operation of motor vehicles.
== END ==
LOC: M SLEEP 20:00
PROVIDERS: ATTEND Nurse Practitioner Family
DX: G47.33 Obstructive sleep apnea (adult) (pediatric) (principal)

== ENCOUNTER → 2019-09-13 | Outpatient (CLI) | payer MEDICARE ==
--- NOTE | 2019-09-17 09:22 | SLEEPCENT ---
DATE OF PROCEDURE: 09/13/2019 ORDERED BY: Susana Camarillo Nocturnal polysomnography was performed for the titration of pressure therapy in this patient with obstructive sleep apnea syndrome and apnea-hypopnea index of 13.1. For testing, the patient was fit with a NeurogesX Simplus full face mask of small size and 4 cm of water pressure were applied to the circuit and the lights were extinguished. 8 hours and 27 minutes of data were reviewed. There were 345.5 minutes of sleep identified. Sleep latency was prolonged at 37 minutes. Rapid eye movement (REM) latency was prolonged at 120 minutes. Sleep architecture was fair with one period of wake between 2:00 and 3:00 a.m. resulting in reduced sleep efficiency of 69.8%. The patient's electrocardiogram showed a sinus appearing rhythm with an average heart rate of 62 beats per minute. Electroencephalogram (EEG) showed normal waveforms for awake and sleep. Respiratory events were best palliated with a C-PAP at a pressure of +9. Thee was some limb activity early in the study. Limb arousal index was 16.7. IMPRESSION: Obstructive sleep apnea syndrome (G47.33). RECOMMENDATION: Nightly use of pressure therapy at 9 cm of water.
== END ==
LOC: M SLEEP 19:28
PROVIDERS: ATTEND Nurse Practitioner Family
DX: G47.33 Obstructive sleep apnea (adult) (pediatric) (principal)

== ENCOUNTER → 2019-09-23 | Outpatient (CLI) | payer MEDICARE ==
--- NOTE | 2019-09-24 02:20 | REPVR ---
PROCEDURE INFORMATION: Exam: MR Cervical Spine Without Contrast Exam date and time: 09/23/2019 11:59 AM Age: 78 years old Clinical indication: Pain; Cervicalgia; Additional info: Spondylosis c region TECHNIQUE: Imaging protocol: Multiplanar magnetic resonance images of the cervical spine without contrast. COMPARISON: MRI-Spine,Cervical without con 02/23/2018 5:17 PM FINDINGS: Vertebrae: The cervical vertebral bodies are normal in height, without abnormal subluxation. Progressive hypertrophic changes are identified posterior to the dens process, likely secondary to arthropathy. There is mild narrowing of the thecal sac at the C2 level, which has progressed. Mild paravertebral swelling is identified adjacent to the dens process and anterior C1 arch, which has mildly progressed. The cervical lordosis is straightened. Spinal cord: Artifact limits evaluation of the cervical spinal cord on the sagittal STIR sequence, without definitive cord edema on the sagittal T2 sequence. Multilevel findings: Degenerative disc disease is noted at multiple cervical and upper thoracic levels, with a decrease in the T2 signal intensity of the discs as well as disc bulge/osteophyte complexes. C1-C2: Marrow edema marrow edema is identified within the dens process, the anterior C1 arch, and bone marrow adjacent to the C1-C2 articulations bilaterally. This has progressed. C1-C2 arthropathy is visualized bilaterally. This marrow edema is likely secondary to arthropathy or prior trauma. Infection/osteomyelitis is also within the differential. C2-C3: There is no significant narrowing of the thecal sac or neural foramina. No posterior disc herniation. C3-C4: Mild narrowing of the thecal sac identified, without progression. Mild right and severe left neural foraminal narrowing, with uncovertebral hypertrophy. C4-C5: Mild disc bulging, without significant narrowing of the thecal sac. Moderate bilateral neural foraminal narrowing, with uncovertebral hypertrophy. Artifact limits evaluation of the left neural foramen. C5-C6: Mild disc bulging, with minimal stable narrowing of the thecal sac. Moderate right and mild left neural foraminal narrowing, with uncovertebral hypertrophy. C6-C7: Disc bulging visualized, with mild stable narrowing of the thecal sac. There is a decrease in disc height. Moderate bilateral neural foraminal narrowing. C7-T1: Minimal disc bulging, without significant narrowing of the thecal sac or neural foramina. Vertebral arteries: Expected flow voids in the vertebral arteries. Soft tissues: See above. Other findings: Motion artifact limits this study. IMPRESSION: 1. Marrow edema marrow edema is identified within the dens process, the anterior C1 arch, and bone marrow adjacent to the C1-C2 articulations bilaterally. This has progressed. C1-C2 arthropathy is visualized bilaterally. This marrow edema is likely secondary to arthropathy or prior trauma. Infection/osteomyelitis is also within the differential. Clinical correlation and possible postcontrast sequences recommended. If there is a history of recent trauma, CT is also recommended. 2. Progressive hypertrophic changes are identified posterior to the dens process, likely secondary to arthropathy. There is mild narrowing of the thecal sac at the C2 level, which has progressed. 3. Mild paravertebral swelling is identified adjacent to the dens process and anterior C1 arch, which has mildly progressed. 4. Degenerative changes are noted at multiple cervical and upper thoracic levels, as described above. 5. Mild stable narrowing of the thecal sac at C3-C4 and C6-C7. There is minimal stable narrowing of the thecal sac at C5-C6. 6. Neural foraminal narrowing identified from C3-C4 through C6-C7, as detailed above. 7. The cervical lordosis is straightened. This can be associated with muscle spasms. Electronically signed by: Javon Joya On 09/24/2019 02:20:36 AM
== END ==
LOC: M RAD 10:43
PROVIDERS: ATTEND Physician Assistant
DX: M50.221 Other cervical disc displacement at C4-C5 level (principal); M50.222 Other cervical disc displacement at C5-C6 level; M50.223 Other cervical disc displacement at C6-C7 level; M50.23 Other cervical disc displacement, cervicothoracic region; M50.020 Cervical disc disorder with myelopathy, mid-cervical region, unspecified level; M25.78 Osteophyte, vertebrae; M47.892 Other spondylosis, cervical region

== ENCOUNTER → 2019-09-26 | Outpatient (REF) | payer MEDICARE ==
[2019-09-26 12:31] LABS: BLOOD UREA NITROGEN 11 MG/DL (7-18); GLOMERULAR FILTRATION RATE > 60.0 (>39)
== END ==
LOC: M LABDRAWC 11:28
PROVIDERS: ATTEND Physician Assistant
DX: M47.892 Other spondylosis, cervical region (principal); M50.321 Other cervical disc degeneration at C4-C5 level; M50.221 Other cervical disc displacement at C4-C5 level

== ENCOUNTER → 2019-11-05 | Outpatient (REF) | payer MEDICARE ==
[2019-11-05 17:08] LABS: MALB URINE SIEMENS 9.5 MG/L; MAU/CREAT RATIO 4.2 MCG/MG (0.0-30.0)
[2019-11-05 18:32] LABS: HEMOGLOBIN A1c 7.4 %
== END ==
LOC: M SFHCCLAY 09:48
PROVIDERS: ATTEND Nurse Practitioner Family
DX: E11.69 Type 2 diabetes mellitus with other specified complication (principal)

== ENCOUNTER 2019-12-04 12:40 | Emergency (ER) | payer MEDICARE ==
[~2019-12-04] VITALS: Ht 154.9 cm; Wt 85.8 kg
[2019-12-04 13:41] LABS: INR 1.57; PROTHROMBIN TIME 18.5 SECONDS (11.8-14.0)
--- NOTE | 2019-12-04 13:51 | REP ---
REASON: Chest pain. COMPARISON: 04/06/2019. FINDINGS: The technique utilized in obtaining the radiograph has magnified the cardiac silhouette and accentuated the interstitial markings. The superior mediastinal structures are midline. The cardiac silhouette is unremarkable in size, shape, and position. The diaphragmatic surfaces of the lungs are regular, and the costophrenic angles are clear. The pulmonary feldman are clear. The imaged osseous structures are intact. IMPRESSION: There is no acute cardiopulmonary disease. No change from the prior exam. Electronically Signed by Jacob Vences DO 12/04/2019 02:17 P
[2019-12-04 13:57] LABS: D-DIMER QUANT 1061.98 ng/ml (<500)
[2019-12-04 14:42] LABS: BASO % 0.4 % (0.0-1.0); EOS % 0.4 % (0.0-3.0); HEMATOCRIT 43.6 % (36.0-47.0); HEMOGLOBIN 14.5 g/dl (12.0-15.5); LYMPH # 1.8 10^3/uL (1.5-5.0); LYMPH % 18.6 % (24.0-44.0); MEAN CORPUSCULAR HEMOGLOBIN 29.1 pg (27.0-33.0); MEAN CORPUSCULAR HGB CONC 33.3 g/dl (32.0-36.5); MEAN CORPUSCULAR VOLUME 87.4 fl (80.0-96.0); MONO # 0.6 10^3/uL (0.0-0.8); MONO % 6.4 % (0.0-5.0); NEUTROPHILS # 7.2 10^3/uL (1.5-8.5); NEUTROPHILS % 73.8 % (36.0-66.0); PLATELET COUNT, AUTOMATED 206 10^3/uL (150-450); RED BLOOD COUNT 4.99 10^6/uL (4.00-5.40); WHITE BLOOD COUNT 9.8 10^3/uL (4.0-10.0)
[2019-12-04 14:53] LABS: BLOOD UREA NITROGEN 9 MG/DL (7-18); CALCIUM LEVEL 8.8 MG/DL (8.8-10.2); CARBON DIOXIDE LEVEL 28 MEQ/L (21-32); CHLORIDE LEVEL 107 MEQ/L (98-107); CREATININE FOR GFR 0.82 MG/DL (0.55-1.30); GLOMERULAR FILTRATION RATE > 60.0 (>32); GLUCOSE, FASTING 145 MG/DL (70-100); POTASSIUM SERUM 3.4 MEQ/L (3.5-5.1); SODIUM LEVEL 140 MEQ/L (136-145)
[2019-12-04 15:00] LABS: ALBUMIN 3.4 GM/DL (3.2-5.2); ALT/SGPT 47 U/L (12-78); BILIRUBIN,DIRECT 0.1 MG/DL (0.0-0.2); BILIRUBIN,TOTAL 0.4 MG/DL (0.2-1.0); CK-MB VALUE MASS < 1.0 NG/ML (<3.6); CPK CREATINE PHOSPHOKINASE 72 U/L (26-192); LIPASE 604 U/L (73-393); MB/CK RELATIVE INDEX 1.39 (< OR =4); TOTAL PROTEIN 7.1 GM/DL (6.4-8.2); TROPONIN I < 0.02 NG/ML (< 0.10)
[2019-12-04] MEDS ORDERED: ISOVUE-370 76% 100ML VIAL (Q9967) As Ordered ONE (15:22)
--- NOTE | 2019-12-04 16:28 | REP ---
CT ANGIOGRAM CHEST: TECHNIQUE: Axial contrast enhanced images from the thoracic inlet to the upper abdomen using 100 mL Isovue 370 intravenous contrast material with multiplanar reformations. COMPARISON: 04/06/2019. There is no CT evidence of pulmonary embolism. There is no thoracic aortic aneurysm or dissection. The heart is upper limits of normal in size. There is no pleural or pericardial effusion. There is no mediastinal, hilar or chest wall lymphadenopathy. Fibroatelectatic changes are seen in both lungs. There are degenerative changes of the spine. There is a small hiatal hernia. There is a 2.5 cm gallstone in the gallbladder. There is no gallbladder wall thickening. There is mild thickening of the adrenal glands. IMPRESSION: No CT evidence of pulmonary embolism. No acute findings. Electronically Signed by Chavez Hewitt MD 12/05/2019 11:51 A
[2019-12-04 16:35] VITALS: BP 130/78
--- NOTE | 2019-12-04 19:21 | ECGEPIP ---
[facility] - ED Test Date: 2019-12-04 Pat Name: CULLEN MCALLISTER Department: Room: - Gender: Female Supply Chain Assistant: JDahiana : 1940 Requested By: Joan Bacon Order Number: [id number] Reading MD: Ethan Rashid Measurements Intervals [place] Rate: 104 P: 52 SC: 183 QRS: 5 QRSD: 75 T: 38 QT: 323 QTc: 426 Interpretive Statements SINUS TACHYCARDIA ST-T ABNORMALITIES ON PRIOR TRACING NO LONGER PRESENT Electronically Signed on 12-04-2019 19:20:39 EDT by Ethan Rashid
== END 2019-12-04 16:40 | disposition home or self-care (01) ==
LOC: M ED 12:40
DX: R07.89 Other chest pain (principal); R06.02 Shortness of breath; I10 Essential (primary) hypertension; J44.9 Chronic obstructive pulmonary disease, unspecified; E78.5 Hyperlipidemia, unspecified; K21.9 Gastro-esophageal reflux disease without esophagitis; Z86.711 Personal history of pulmonary embolism; Z79.899 Other long term (current) drug therapy; Z79.01 Long term (current) use of anticoagulants; Z91.048 Other nonmedicinal substance allergy status
CPT/HCPCS: 36415; 71045; 71275; 80048; 80076; 82550; 82553; 83690; 84484; 85025; 85379; 85610; 93005; 93041; 94760; 99285; Q9967

== ENCOUNTER → 2020-03-03 | Outpatient (REF) | payer MEDICARE ==
[~2020-03-03] MED LIST changes: -AMLO10TA5 PO; +AMLO1TAB25 PO; -ASPI81TA85 PO; +ASPI81TA86 PO; +VITA-243 PO; -VITA500T PO
[2020-03-03 11:17] LABS: HEMATOCRIT 43.8 % (36.0-47.0); HEMOGLOBIN 14.3 g/dl (12.0-15.5); MEAN CORPUSCULAR HEMOGLOBIN 28.5 pg (27.0-33.0); MEAN CORPUSCULAR HGB CONC 32.6 g/dl (32.0-36.5); MEAN CORPUSCULAR VOLUME 87.3 fl (80.0-96.0); PLATELET COUNT, AUTOMATED 197 10^3/uL (150-450); RED BLOOD COUNT 5.02 10^6/uL (4.00-5.40); WHITE BLOOD COUNT 6.4 10^3/uL (4.0-10.0)
[2020-03-03 11:58] LABS: CHOLESTEROL RISK RATIO 2.839 (<5); TOTAL 25(OH) VITAMIN D 53.4 NG/ML (30.0-100.0)
[2020-03-03 16:54] LABS: HEMOGLOBIN A1c 6.9 %
== END ==
LOC: M SFHCCLAY 08:15
PROVIDERS: ATTEND Nurse Practitioner Family
DX: E11.69 Type 2 diabetes mellitus with other specified complication (principal); E78.5 Hyperlipidemia, unspecified; M85.9 Disorder of bone density and structure, unspecified; K21.9 Gastro-esophageal reflux disease without esophagitis

== ENCOUNTER → 2020-09-02 | Outpatient (REF) | payer MEDICARE ==
[2020-09-02 16:03] LABS: HEMATOCRIT 45.1 % (36.0-47.0); HEMOGLOBIN 14.3 g/dl (12.0-15.5); MEAN CORPUSCULAR HEMOGLOBIN 27.7 pg (27.0-33.0); MEAN CORPUSCULAR HGB CONC 31.7 g/dl (32.0-36.5); MEAN CORPUSCULAR VOLUME 87.2 fl (80.0-96.0); PLATELET COUNT, AUTOMATED 220 10^3/uL (150-450); RED BLOOD COUNT 5.17 10^6/uL (4.00-5.40); WHITE BLOOD COUNT 7.6 10^3/uL (4.0-10.0)
[2020-09-02 16:11] LABS: ALBUMIN 3.8 GM/DL (3.2-5.2); ALT/SGPT 23 U/L (12-78); BILIRUBIN,TOTAL 0.6 MG/DL (0.2-1.0); BLOOD UREA NITROGEN 16 MG/DL (7-18); CALCIUM LEVEL 9.2 MG/DL (8.8-10.2); CARBON DIOXIDE LEVEL 32 MEQ/L (21-32); CHLORIDE LEVEL 105 MEQ/L (98-107); CHOLESTEROL LEVEL 196 MG/DL (<200); CREATININE FOR GFR 0.82 MG/DL (0.55-1.30); GLOMERULAR FILTRATION RATE > 60.0 (>32); GLUCOSE, FASTING 134 MG/DL (70-100); HDL CHOLESTEROL 80 MG/DL (>40); LDL CHOLESTEROL 98 MG/DL (<100); NON-HDL-C 116 MG/DL; SODIUM LEVEL 142 MEQ/L (136-145); TOTAL PROTEIN 6.6 GM/DL (6.4-8.2); TRIGLYCERIDES LEVEL 92 MG/DL (<150)
[2020-09-02 16:20] LABS: TOTAL 25(OH) VITAMIN D 35.2 NG/ML (30.0-100.0)
[2020-09-02 16:38] LABS: HEMOGLOBIN A1c 6.4 %
[2020-09-02 16:43] LABS: MALB URINE SIEMENS 9.4 MG/L; MAU/CREAT RATIO 5.5 MCG/MG (0.0-30.0)
== END ==
LOC: M SFHCCLAY 10:12
PROVIDERS: ATTEND Nurse Practitioner Family
DX: E11.69 Type 2 diabetes mellitus with other specified complication (principal); I10 Essential (primary) hypertension; E78.5 Hyperlipidemia, unspecified; M85.9 Disorder of bone density and structure, unspecified

== ENCOUNTER → 2021-05-26 | Outpatient (CLI) | payer MEDICARE ==
[~2021-05-26] MED LIST changes: +OMEP40CA4 PO; -OMEP40CA97 PO
--- NOTE | 2021-05-26 10:03 | REPMRS ---
Patient History The patient states she has not had a clinical breast exam in over a year. Patient is postmenopausal. Family history of breast cancer at age 50 or over in mother, breast cancer at age 50 or over in sister. Benign cyst aspiration of the left breast, 2007. No Hormone Replacement Therapy Patient states no breast complaints today. Patient has signed MRS History Sheet. Digital Woman Screen Mammo: May 26, 2021 - Exam #: [id number] Bilateral CC and MLO view(s) were taken. Technologist: Orquidea Ricardo, Alumni Relations Coordinator Prior study comparison: April 04, 2018, bilateral digital woman screen mammo performed at [facility]. April 03, 2017, digital woman screen mammo performed at [facility]. FINDINGS: There are scattered fibroglandular densities. Screening. Digital screening (2D) mammography was performed bilaterally in the CC and MLO projections. Additionally, breast tomosynthesis (3D mammography) was performed bilaterally in the CC and MLO projections. Todays exam was compared to the prior exam/exams. By history, the patient has no complaints of a palpable breast abnormality or other significant breast complaints. The breasts are unchanged in size and shape. There are no geovanni-soft tissue densities or spiculated masses. There is no internal architectural distortion. Calcifications are again seen in the breast/breasts. Some of these are in groups but no one group appears more suspicious than any other. There are no suspicious geovanni-calcific clusters. Skin thickening or nipple retraction is not present. IMPRESSION: BI-RADS Category 2- Benign Findings. There is no evidence of malignant alteration of the breasts. Followup examination recommended in one year. The Volpara volumetric breast density category is B, there are scattered areas of fibroglandular densities. This mammogram was read with the assistance of [employer],an FDA approved computer aided detection system for mammography. The lifetime Tyrer-Cuzick score is 3.3 % Negative x-ray reports should not delay surgical consultation if a dominant or clinically suspicious mass is present. Not all breast cancers can be identified by mammography. Therefore, we recommend that you continue to perform regular breast self-examination and physical examination and then promptly contact your physician of any concerns or changes. Adenosis and dense breasts may obscure an underlying neoplasm. Assessment: BI-RADS/ACR category 2 mammogram. Benign Findings. Recommendation Routine screening mammogram of both breasts in 1 year. Electronically Signed By: Jacob Vences DO 05/26/21 1002
== END ==
LOC: M WHC 09:08
PROVIDERS: ATTEND Nurse Practitioner Family
DX: Z12.31 Encounter for screening mammogram for malignant neoplasm of breast (principal)

== ENCOUNTER → 2021-06-01 | Outpatient (REF) | payer MEDICARE ==
[2021-06-01 16:08] LABS: HEMOGLOBIN A1c 6.8 %
[2021-06-01 16:13] LABS: CHOLESTEROL RISK RATIO 2.6 (<5)
== END ==
LOC: M SFHCCLAY 09:35
PROVIDERS: ATTEND Nurse Practitioner Family
DX: E11.69 Type 2 diabetes mellitus with other specified complication (principal); E78.5 Hyperlipidemia, unspecified

== ENCOUNTER → 2021-06-04 | Outpatient (REF) | payer MEDICARE ==
[2021-06-04 18:44] LABS: CREATININE, URINE 60.3 MG/DL; MALB URINE SIEMENS < 5.0 MG/L; MAU/CREAT RATIO 8.2 MCG/MG (0.0-30.0)
== END ==
LOC: M SFHCCLAY 15:37
PROVIDERS: ATTEND Nurse Practitioner Family
DX: E11.69 Type 2 diabetes mellitus with other specified complication (principal)

== ENCOUNTER → 2021-09-25 | Outpatient (CLI) | payer MEDICARE ==
[~2021-09-25] MED LIST changes: +DULO1CAP5 PO; -LISI20TA20 PO; +LISI20TA37 PO; +TIZA2TA PO; +TRAM50TA2 PO
== END ==
LOC: M LABSMTC 09:59
PROVIDERS: ATTEND Anesthesiology
DX: Z01.812 Encounter for preprocedural laboratory examination (principal); Z20.822 Contact with and (suspected) exposure to COVID-19

== ENCOUNTER 2021-09-30 10:27 | Day surgery (SDC) | payer MEDICARE ==
[~2021-09-30] VITALS: Ht 154.9 cm; Wt 82.5 kg
[~2021-09-30 10:27] MED LIST changes: +NS 1,000 ML IV ONE
[2021-09-30] MEDS ORDERED: LIDOCAINE 2% 100MG/5ML SDV (FOR ANES.) As Ordered ONE (12:11)
[2021-09-30] MEDS ORDERED: propofoL 200 MG/20 ML VIAL As Ordered ONE ×2 (12:11→12:14)
[2021-09-30 12:55] VITALS: BP 146/70
== END 2021-09-30 13:09 | disposition home or self-care (01) ==
LOC: M OPP 10:27
PROVIDERS: ATTEND Surgery
DX: D12.6 Benign neoplasm of colon, unspecified (principal); R19.5 Other fecal abnormalities; Z80.0 Family history of malignant neoplasm of digestive organs; Z80.1 Family history of malignant neoplasm of trachea, bronchus and lung; Z80.3 Family history of malignant neoplasm of breast; Z79.899 Other long term (current) drug therapy; Z79.891 Long term (current) use of opiate analgesic; Z91.048 Other nonmedicinal substance allergy status

== ENCOUNTER → 2021-12-29 | Outpatient (REF) | payer MEDICARE ==
[~2021-12-29] MED LIST changes: -NS 1,000 ML IV ONE
[2021-12-29 11:57] LABS: BASO % 0.3 % (0.0-1.0); EOS # 0.1 10^3/uL (0.0-0.5); EOS % 1.1 % (0.0-3.0); HEMOGLOBIN 14.6 g/dl (12.0-15.5); MEAN CORPUSCULAR HEMOGLOBIN 28.2 pg (27.0-33.0); MEAN CORPUSCULAR HGB CONC 32.4 g/dl (32.0-36.5); MEAN CORPUSCULAR VOLUME 86.9 fl (80.0-96.0); MONO # 0.5 10^3/uL (0.0-0.8); MONO % 7.4 % (2.0-8.0); NEUTROPHILS # 3.8 10^3/uL (1.5-8.5); NEUTROPHILS % 58.9 % (36.0-66.0); PLATELET COUNT, AUTOMATED 232 10^3/uL (150-450); RED BLOOD COUNT 5.18 10^6/uL (4.00-5.40); WHITE BLOOD COUNT 6.4 10^3/uL (4.0-10.0)
[2021-12-29 13:03] LABS: ALBUMIN 3.7 GM/DL (3.2-5.2); ALT/SGPT 23 U/L (12-78); BILIRUBIN,TOTAL 0.6 MG/DL (0.2-1.0); BLOOD UREA NITROGEN 14 MG/DL (7-18); CALCIUM LEVEL 9.9 MG/DL (8.8-10.2); CARBON DIOXIDE LEVEL 30 MEQ/L (21-32); CHLORIDE LEVEL 106 MEQ/L (98-107); CHOLESTEROL LEVEL 210 MG/DL (<200); CHOLESTEROL RISK RATIO 2.916 (<5); CREATININE FOR GFR 0.67 MG/DL (0.55-1.30); FREE T4 0.91 NG/DL (0.76-1.46); GLOMERULAR FILTRATION RATE > 60.0 (>32); GLUCOSE, FASTING 142 MG/DL (70-100); HDL CHOLESTEROL 72 MG/DL (>40); LDL CHOLESTEROL 119 MG/DL (<100); NON-HDL-C 138 MG/DL; POTASSIUM SERUM 4.1 MEQ/L (3.5-5.1); SODIUM LEVEL 142 MEQ/L (136-145); TOTAL PROTEIN 6.8 GM/DL (6.4-8.2); TRIGLYCERIDES LEVEL 93 MG/DL (<150)
[2021-12-29 21:16] LABS: HEMOGLOBIN A1c 6.7 %
== END ==
LOC: M SFHCCLAY 08:49
PROVIDERS: ATTEND Nurse Practitioner Family
DX: E11.69 Type 2 diabetes mellitus with other specified complication (principal); I10 Essential (primary) hypertension; E78.5 Hyperlipidemia, unspecified

== ENCOUNTER → 2022-06-24 | Outpatient (CLI) | payer MEDICARE | LOC: M WHC 10:30 | PROVIDERS: ATTEND Nurse Practitioner Family | DX: Z12.31 Encounter for screening mammogram for malignant neoplasm of breast (principal); Z80.3 Family history of malignant neoplasm of breast; M81.0 Age-related osteoporosis without current pathological fracture; M85.852 Other specified disorders of bone density and structure, left thigh ==

== ENCOUNTER → 2022-06-28 | Outpatient (REF) | payer MEDICARE ==
[2022-06-28 17:37] LABS: BASO # 0.1 10^3/uL (0.0-0.2); BASO % 0.7 % (0.0-1.0); EOS # 0.2 10^3/uL (0.0-0.5); EOS % 2.3 % (0.0-3.0); HEMATOCRIT 46.1 % (36.0-47.0); HEMOGLOBIN 14.7 g/dl (12.0-15.5); LYMPH % 26.8 % (24.0-44.0); MEAN CORPUSCULAR HEMOGLOBIN 27.8 pg (27.0-33.0); MEAN CORPUSCULAR HGB CONC 31.9 g/dl (32.0-36.5); MEAN CORPUSCULAR VOLUME 87.1 fl (80.0-96.0); MONO # 0.6 10^3/uL (0.0-0.8); MONO % 8.1 % (2.0-8.0); NEUTROPHILS # 4.7 10^3/uL (1.5-8.5); NEUTROPHILS % 61.8 % (36.0-66.0); PLATELET COUNT, AUTOMATED 212 10^3/uL (150-450); RED BLOOD COUNT 5.29 10^6/uL (4.00-5.40); WHITE BLOOD COUNT 7.5 10^3/uL (4.0-10.0)
[2022-06-28 18:21] LABS: ALBUMIN 3.8 GM/DL (3.2-5.2); ALT/SGPT 20 U/L (12-78); BILIRUBIN,TOTAL 0.5 MG/DL (0.2-1.0); BLOOD UREA NITROGEN 15 MG/DL (7-18); CALCIUM LEVEL 9.7 MG/DL (8.8-10.2); CARBON DIOXIDE LEVEL 29 MEQ/L (21-32); CHLORIDE LEVEL 103 MEQ/L (98-107); FREE T4 0.97 NG/DL (0.76-1.46); GLOMERULAR FILTRATION RATE > 60.0 (>32); GLUCOSE, FASTING 137 MG/DL (70-100); POTASSIUM SERUM 5.1 MEQ/L (3.5-5.1); SODIUM LEVEL 138 MEQ/L (136-145)
[2022-06-28 18:45] LABS: TOTAL 25(OH) VITAMIN D 34.1 NG/ML (30.0-100.0)
[2022-06-28 19:41] LABS: HEMOGLOBIN A1c 6.5 %
== END ==
LOC: M SFHCCLAY 09:19
PROVIDERS: ATTEND Nurse Practitioner Family
DX: E11.69 Type 2 diabetes mellitus with other specified complication (principal); I10 Essential (primary) hypertension; E78.5 Hyperlipidemia, unspecified; K21.9 Gastro-esophageal reflux disease without esophagitis; M81.0 Age-related osteoporosis without current pathological fracture; S42.292S Other displaced fracture of upper end of left humerus, sequela; Z86.711 Personal history of pulmonary embolism

== ENCOUNTER → 2022-07-04 | Outpatient (CLI) | payer MEDICARE | LOC: M CLY 09:29 | PROVIDERS: ATTEND Nurse Practitioner Family | DX: M51.36 Other intervertebral disc degeneration, lumbar region (principal); R20.2 Paresthesia of skin ==

== ENCOUNTER → 2022-10-18 | Outpatient (CLI) | payer MEDICARE | LOC: M CLY 15:28 | PROVIDERS: ATTEND Nurse Practitioner Family | DX: M25.551 Pain in right hip (principal); M25.552 Pain in left hip; M54.50 Low back pain, unspecified; W19.XXXA Unspecified fall, initial encounter ==

== ENCOUNTER → 2022-10-27 | Outpatient (REF) | payer MEDICARE | LOC: M SFHCCAPE 16:13 | PROVIDERS: ATTEND Physician Assistant | DX: R35.0 Frequency of micturition (principal) ==

== ENCOUNTER → 2022-12-26 | Outpatient (REF) | payer MEDICARE ==
[2022-12-26 18:05] LABS: BASO % 0.6 % (0.0-1.0); EOS # 0.1 10^3/uL (0.0-0.5); EOS % 1.4 % (0.0-3.0); HEMATOCRIT 46.4 % (36.0-47.0); HEMOGLOBIN 14.8 g/dl (12.0-15.5); LYMPH # 1.9 10^3/uL (1.5-5.0); MEAN CORPUSCULAR HGB CONC 31.9 g/dl (32.0-36.5); MEAN CORPUSCULAR VOLUME 87.9 fl (80.0-96.0); MONO # 0.5 10^3/uL (0.0-0.8); MONO % 7.7 % (2.0-8.0); NEUTROPHILS # 4.3 10^3/uL (1.5-8.5); PLATELET COUNT, AUTOMATED 226 10^3/uL (150-450); RED BLOOD COUNT 5.28 10^6/uL (4.00-5.40); WHITE BLOOD COUNT 6.9 10^3/uL (4.0-10.0)
[2022-12-26 18:26] LABS: CREATININE, URINE 54.7 MG/DL; MALB URINE SIEMENS < 3.0 MG/L; MAU/CREAT RATIO 5.4 MCG/MG (0.0-30.0)
[2022-12-26 18:34] LABS: THYROID STIMULATING HORMONE 0.769 uIU/ML (0.55-4.78)
[2022-12-26 18:36] LABS: ALBUMIN 3.7 G/DL (3.2-5.2); ALKALINE PHOSPHATASE 89 U/L (46-116); ALT/SGPT 18 U/L (7.0-40); AST/SGOT 8 U/L (<34); BILIRUBIN,TOTAL 0.6 MG/DL (0.3-1.2); BLOOD UREA NITROGEN 13 MG/DL (9-23); CALCIUM LEVEL 9.2 MG/DL (8.3-10.6); CARBON DIOXIDE LEVEL 29 MMOL/L (20-31); CHLORIDE LEVEL 106 MMOL/L (98-107); CHOLESTEROL LEVEL 173 MG/DL (<200); CHOLESTEROL RISK RATIO 2.55 (<5); CREATININE FOR GFR 0.74 MG/DL (0.55-1.30); GLOMERULAR FILTRATION RATE > 60.0 (>32); GLUCOSE, FASTING 119 MG/DL (74-106); HDL CHOLESTEROL 67.6 MG/DL (>40); LDL CHOLESTEROL 89.4 MG/DL (<100); NON-HDL-C 105.4 MG/DL; POTASSIUM SERUM 4.8 MMOL/L (3.5-5.1); SODIUM LEVEL 141 MMOL/L (136-145); TOTAL PROTEIN 6.6 G/DL (5.7-8.2); TRIGLYCERIDES LEVEL 80 MG/DL (<150)
[2022-12-26 18:37] LABS: FREE T4 0.93 NG/DL (0.89-1.76)
== END ==
LOC: M SFHCCLAY 11:49
PROVIDERS: ATTEND Nurse Practitioner Family
DX: E11.69 Type 2 diabetes mellitus with other specified complication (principal); I10 Essential (primary) hypertension; E78.5 Hyperlipidemia, unspecified; K21.9 Gastro-esophageal reflux disease without esophagitis; Z86.711 Personal history of pulmonary embolism; Z12.31 Encounter for screening mammogram for malignant neoplasm of breast; M81.0 Age-related osteoporosis without current pathological fracture; S42.292S Other displaced fracture of upper end of left humerus, sequela

== ENCOUNTER 2023-04-20 14:22 | Emergency (ER) | payer MEDICARE ==
[~2023-04-20] VITALS: Ht 154.9 cm; Wt 81.4 kg
[2023-04-20 14:23] VITALS: TEMP 97.1
[2023-04-20 15:39] LABS: BASO % 0.4 % (0.0-1.0); EOS # 0.1 10^3/uL (0.0-0.5); HEMATOCRIT 46.5 % (36.0-47.0); LYMPH # 1.6 10^3/uL (1.5-5.0); LYMPH % 14.7 % (24.0-44.0); MEAN CORPUSCULAR HGB CONC 32.3 g/dl (32.0-36.5); MEAN CORPUSCULAR VOLUME 86.8 fl (80.0-96.0); MONO # 0.7 10^3/uL (0.0-0.8); MONO % 6.7 % (2.0-8.0); NEUTROPHILS # 8.2 10^3/uL (1.5-8.5); NEUTROPHILS % 76.9 % (36.0-66.0); PLATELET COUNT, AUTOMATED 184 10^3/uL (150-450); RED BLOOD COUNT 5.36 10^6/uL (4.00-5.40); WHITE BLOOD COUNT 10.6 10^3/uL (4.0-10.0)
[2023-04-20 16:01] LABS: LIPASE 55 U/L (12-53)
[2023-04-20 16:04] LABS: ALBUMIN 3.7 G/DL (3.2-5.2); ALKALINE PHOSPHATASE 96 U/L (46-116); ALT/SGPT 16 U/L (7.0-40); AST/SGOT 13 U/L (<34); BILIRUBIN,DIRECT 0.2 MG/DL (<0.4); BILIRUBIN,TOTAL 0.4 MG/DL (0.3-1.2); BLOOD UREA NITROGEN 14 MG/DL (9-23); CALCIUM LEVEL 9.5 MG/DL (8.3-10.6); CARBON DIOXIDE LEVEL 31 MMOL/L (20-31); CHLORIDE LEVEL 105 MMOL/L (98-107); CREATININE FOR GFR 0.87 MG/DL (0.55-1.30); GLOMERULAR FILTRATION RATE > 60.0 (>32); GLUCOSE, FASTING 167 MG/DL (74-106); POTASSIUM SERUM 4.6 MMOL/L (3.5-5.1); SODIUM LEVEL 144 MMOL/L (136-145); TOTAL PROTEIN 6.5 G/DL (5.7-8.2)
[2023-04-20] MEDS ORDERED: ACETAMINOPHEN *IV* 1,000 MG in IV 1 EA IV ONE (16:55)
[2023-04-20] MEDS ORDERED: ONDANSETRON 4MG 2ML VIAL IV ONE (16:55)
[2023-04-20] MEDS ORDERED: ISOVUE-370 76% 100ML VIAL As Ordered ONE (17:02)
[2023-04-20 17:28] LABS: CK-MB VALUE MASS < 1.0 NG/ML (<3.6)
[2023-04-20 17:29] LABS: CPK CREATINE PHOSPHOKINASE 59 U/L (34-145); MB/CK RELATIVE INDEX 1.69 (< OR =4)
[2023-04-20 19:30] VITALS: BP 148/70
[2023-04-20 19:37] VITALS: O2SAT 98
== END 2023-04-20 19:59 | disposition home or self-care (01) ==
LOC: M ED 14:22
DX: R10.9 Unspecified abdominal pain (principal); R11.0 Nausea; I49.1 Atrial premature depolarization; I10 Essential (primary) hypertension; K21.9 Gastro-esophageal reflux disease without esophagitis; E78.5 Hyperlipidemia, unspecified; R51.9 Headache, unspecified; Z91.048 Other nonmedicinal substance allergy status; Z79.811 Long term (current) use of aromatase inhibitors; Z79.899 Other long term (current) drug therapy
CPT/HCPCS: 74177; 80048; 80076; 81001; 82550; 82553; 83690; 84484; 85025; 93005; 93041; 96374; 96375; 99285; J0131; J2405; Q9967

== ENCOUNTER → 2023-06-26 | Outpatient (CLI) | payer MEDICARE | LOC: M WHC 10:09 | PROVIDERS: ATTEND Nurse Practitioner Family | DX: Z12.31 Encounter for screening mammogram for malignant neoplasm of breast (principal) ==

== ENCOUNTER → 2023-07-03 | Outpatient (REF) | payer MEDICARE ==
[2023-07-03 13:18] LABS: HEMOGLOBIN A1c 6.3 % (4.0-6.0)
[2023-07-03 13:21] LABS: ALBUMIN 3.7 G/DL (3.2-5.2); ALKALINE PHOSPHATASE 100 U/L (46-116); ALT/SGPT 12 U/L (7.0-40); AST/SGOT 19 U/L (<34); BILIRUBIN,TOTAL 0.6 MG/DL (0.3-1.2); BLOOD UREA NITROGEN 11 MG/DL (9-23); CALCIUM LEVEL 9.5 MG/DL (8.3-10.6); CARBON DIOXIDE LEVEL 30 MMOL/L (20-31); CHLORIDE LEVEL 104 MMOL/L (98-107); CREATININE FOR GFR 0.75 MG/DL (0.55-1.30); GLOMERULAR FILTRATION RATE > 60.0 (>32); GLUCOSE, FASTING 109 MG/DL (74-106); POTASSIUM SERUM 5.1 MMOL/L (3.5-5.1); SODIUM LEVEL 141 MMOL/L (136-145); TOTAL PROTEIN 6.7 G/DL (5.7-8.2)
== END ==
LOC: M SFHCCLAY 08:45
PROVIDERS: ATTEND Nurse Practitioner Family
DX: E11.69 Type 2 diabetes mellitus with other specified complication (principal); I10 Essential (primary) hypertension; E78.5 Hyperlipidemia, unspecified; K21.9 Gastro-esophageal reflux disease without esophagitis; Z86.711 Personal history of pulmonary embolism; M81.0 Age-related osteoporosis without current pathological fracture; Z12.31 Encounter for screening mammogram for malignant neoplasm of breast; S42.292S Other displaced fracture of upper end of left humerus, sequela

== ENCOUNTER → 2024-01-02 | Outpatient (REF) | payer MEDICARE ==
[~2024-01-02] MED LIST changes: -ASPI-161 PO; +ASPI-615 PO
[2024-01-02 12:06] LABS: BASO % 0.4 % (0.0-1.0); EOS # 0.1 10^3/uL (0.0-0.5); EOS % 2.2 % (0.0-3.0); HEMATOCRIT 45.5 % (36.0-47.0); HEMOGLOBIN 14.9 g/dl (12.0-15.5); LYMPH # 1.2 10^3/uL (1.5-5.0); LYMPH % 21.9 % (24.0-44.0); MEAN CORPUSCULAR HEMOGLOBIN 28.5 pg (27.0-33.0); MEAN CORPUSCULAR HGB CONC 32.7 g/dl (32.0-36.5); MEAN CORPUSCULAR VOLUME 87.2 fl (80.0-96.0); MONO # 0.4 10^3/uL (0.0-0.8); MONO % 8.2 % (2.0-8.0); NEUTROPHILS # 3.6 10^3/uL (1.5-8.5); NEUTROPHILS % 66.9 % (36.0-66.0); PLATELET COUNT, AUTOMATED 216 10^3/uL (150-450); RED BLOOD COUNT 5.22 10^6/uL (4.00-5.40); WHITE BLOOD COUNT 5.4 10^3/uL (4.0-10.0)
[2024-01-02 12:26] LABS: HEMOGLOBIN A1c 6.8 % (4.0-6.0)
[2024-01-02 12:34] LABS: ALBUMIN 3.9 G/DL (3.2-5.2); ALKALINE PHOSPHATASE 101 U/L (46-116); ALT/SGPT 27 U/L (7.0-40); AST/SGOT 24 U/L (<34); BILIRUBIN,TOTAL 0.6 MG/DL (0.3-1.2); BLOOD UREA NITROGEN 18 MG/DL (9-23); CALCIUM LEVEL 9.2 MG/DL (8.3-10.6); CARBON DIOXIDE LEVEL 29 MMOL/L (20-31); CHLORIDE LEVEL 104 MMOL/L (98-107); CHOLESTEROL LEVEL 174 MG/DL (<200); CHOLESTEROL RISK RATIO 2.53 (<5); CREATININE FOR GFR 0.78 MG/DL (0.55-1.30); GLOMERULAR FILTRATION RATE > 60.0 (>32); GLUCOSE, FASTING 147 MG/DL (74-106); HDL CHOLESTEROL 68.6 MG/DL (>40); NON-HDL-C 105.4 MG/DL; POTASSIUM SERUM 4.3 MMOL/L (3.5-5.1); SODIUM LEVEL 138 MMOL/L (136-145); TOTAL PROTEIN 6.8 G/DL (5.7-8.2); TRIGLYCERIDES LEVEL 92 MG/DL (<150)
[2024-01-02 12:36] LABS: THYROID STIMULATING HORMONE 1.434 uIU/ML (0.55-4.78)
== END ==
LOC: M SFHCCLAY 09:12
PROVIDERS: ATTEND Nurse Practitioner Family
DX: E11.69 Type 2 diabetes mellitus with other specified complication (principal); I10 Essential (primary) hypertension; E78.5 Hyperlipidemia, unspecified; K21.9 Gastro-esophageal reflux disease without esophagitis; M81.0 Age-related osteoporosis without current pathological fracture; Z12.31 Encounter for screening mammogram for malignant neoplasm of breast; S42.292S Other displaced fracture of upper end of left humerus, sequela; Z86.711 Personal history of pulmonary embolism

== ENCOUNTER → 2024-06-28 | Outpatient (CLI) | payer MEDICARE | LOC: M WHC 09:49 | PROVIDERS: ATTEND Nurse Practitioner Family | DX: Z12.31 Encounter for screening mammogram for malignant neoplasm of breast (principal); Z13.820 Encounter for screening for osteoporosis; M81.0 Age-related osteoporosis without current pathological fracture; M85.88 Other specified disorders of bone density and structure, other site; M85.851 Other specified disorders of bone density and structure, right thigh; M85.852 Other specified disorders of bone density and structure, left thigh ==

== ENCOUNTER → 2024-08-13 | Outpatient (REF) | payer MEDICARE ==
[2024-08-13 12:16] LABS: HEMOGLOBIN A1c 7.8 % (4.0-6.0)
[2024-08-13 12:28] LABS: ALBUMIN 3.5 G/DL (3.2-5.2); ALKALINE PHOSPHATASE 98 U/L (35-104); ALT/SGPT 29 U/L (7.0-40); AST/SGOT 22 U/L (<34); BILIRUBIN,TOTAL 0.8 MG/DL (0.3-1.2); BLOOD UREA NITROGEN 18 MG/DL (9-23); CALCIUM LEVEL 9.7 MG/DL (8.3-10.6); CARBON DIOXIDE LEVEL 30 MMOL/L (20-31); CHLORIDE LEVEL 103 MMOL/L (98-107); CREATININE FOR GFR 0.78 MG/DL (0.55-1.30); GLOMERULAR FILTRATION RATE > 60.0 (>32); GLUCOSE, FASTING 177 MG/DL (74-106); POTASSIUM SERUM 3.8 MMOL/L (3.5-5.1); SODIUM LEVEL 140 MMOL/L (136-145); TOTAL PROTEIN 6.9 G/DL (5.7-8.2)
== END ==
LOC: M SFHCCLAY 07:58
PROVIDERS: ATTEND Nurse Practitioner Family
DX: E11.69 Type 2 diabetes mellitus with other specified complication (principal); I10 Essential (primary) hypertension; E78.5 Hyperlipidemia, unspecified; K21.9 Gastro-esophageal reflux disease without esophagitis; M81.0 Age-related osteoporosis without current pathological fracture; S42.292S Other displaced fracture of upper end of left humerus, sequela; Z12.31 Encounter for screening mammogram for malignant neoplasm of breast; Z86.711 Personal history of pulmonary embolism; Y93.9 Activity, unspecified; Y92.9 Unspecified place or not applicable

== ENCOUNTER → 2024-10-29 | Outpatient (REF) | payer MEDICARE ==
[2024-10-29 15:39] LABS: ALBUMIN 3.8 G/DL (3.2-5.2); ALKALINE PHOSPHATASE 104 U/L (35-104); ALT/SGPT 30 U/L (7.0-40); AST/SGOT 24 U/L (<34); BILIRUBIN,TOTAL 0.6 MG/DL (0.3-1.2); BLOOD UREA NITROGEN 12 MG/DL (9-23); CALCIUM LEVEL 9.4 MG/DL (8.3-10.6); CARBON DIOXIDE LEVEL 29 MMOL/L (20-31); CHLORIDE LEVEL 102 MMOL/L (98-107); CREATININE FOR GFR 0.68 MG/DL (0.55-1.30); GLOMERULAR FILTRATION RATE > 60.0 (>32); GLUCOSE, FASTING 161 MG/DL (74-106); POTASSIUM SERUM 3.7 MMOL/L (3.5-5.1); SODIUM LEVEL 141 MMOL/L (136-145)
[2024-10-29 17:51] LABS: HEMOGLOBIN A1c 7.6 % (4.0-6.0)
== END ==
LOC: M SFHCCLAY 09:12
PROVIDERS: ATTEND Nurse Practitioner Family
DX: E11.69 Type 2 diabetes mellitus with other specified complication (principal)

== ENCOUNTER → 2024-11-26 | Outpatient (REF) ==
[2024-11-26 12:45] LABS: HEMATOCRIT 37.6 % (36.0-47.0); MEAN CORPUSCULAR HEMOGLOBIN 28.4 pg (27.0-33.0); MEAN CORPUSCULAR HGB CONC 31.9 g/dl (32.0-36.5); MEAN CORPUSCULAR VOLUME 89.1 fl (80.0-96.0); PLATELET COUNT, AUTOMATED 325 10^3/uL (150-450); RED BLOOD COUNT 4.22 10^6/uL (4.00-5.40); WHITE BLOOD COUNT 12.3 10^3/uL (4.0-10.0)
[2024-11-26 13:08] LABS: BLOOD UREA NITROGEN 13 MG/DL (9-23); CALCIUM LEVEL 9.2 MG/DL (8.3-10.6); CARBON DIOXIDE LEVEL 28 MMOL/L (20-31); CHLORIDE LEVEL 101 MMOL/L (98-107); CREATININE FOR GFR 0.52 MG/DL (0.55-1.30); GLOMERULAR FILTRATION RATE > 60.0 (>32); GLUCOSE, FASTING 194 MG/DL (74-106); IRON (FE) 46 UG/DL (50-170); MAGNESIUM LEVEL 1.8 MG/DL (1.8-2.4); PERCENT SATURATION 17.3 % (13.2-45.0); POTASSIUM SERUM 5.2 MMOL/L (3.5-5.1); SODIUM LEVEL 138 MMOL/L (136-145); TOTAL IRON BINDING CAPACITY 266 UG/DL (250-425)
[2024-11-26 13:12] LABS: FERRITIN 392.4 NG/ML (7.3-270.7)
== END ==
LOC: SKLAB2 12:05
PROVIDERS: ATTEND Internal Medicine
DX: R60.9 Edema, unspecified (principal); D64.9 Anemia, unspecified; I10 Essential (primary) hypertension; N17.9 Acute kidney failure, unspecified

== ENCOUNTER → 2024-12-05 | Outpatient (REF) | payer MEDICARE, OTHER | LOC: SKLAB2 13:38 | PROVIDERS: ATTEND Internal Medicine | DX: R09.02 Hypoxemia (principal) ==

== ENCOUNTER → 2024-12-17 | Outpatient (REF) ==
[2024-12-17 10:44] LABS: CALCIUM LEVEL 8.9 MG/DL (8.3-10.6); CREATININE FOR GFR 0.67 MG/DL (0.55-1.30); GLOMERULAR FILTRATION RATE 85.6 (>32); POTASSIUM SERUM 3.8 MMOL/L (3.5-5.1)
== END ==
LOC: SKLAB2 09:38
PROVIDERS: ATTEND Internal Medicine
DX: I10 Essential (primary) hypertension (principal)

== ENCOUNTER → 2024-12-18 | Outpatient (REF) ==
[2024-12-18 16:09] LABS: BASO % 0.2 % (0.0-1.0); EOS % 0.2 % (0.0-3.0); HEMATOCRIT 40.9 % (36.0-47.0); HEMOGLOBIN 12.9 g/dl (12.0-15.5); LYMPH # 0.8 10^3/uL (1.5-5.0); LYMPH % 6.2 % (24.0-44.0); MEAN CORPUSCULAR HEMOGLOBIN 27.9 pg (27.0-33.0); MEAN CORPUSCULAR HGB CONC 31.5 g/dl (32.0-36.5); MEAN CORPUSCULAR VOLUME 88.3 fl (80.0-96.0); MONO # 0.8 10^3/uL (0.0-0.8); MONO % 6.1 % (2.0-8.0); NEUTROPHILS # 10.7 10^3/uL (1.5-8.5); NEUTROPHILS % 86.7 % (36.0-66.0); PLATELET COUNT, AUTOMATED 198 10^3/uL (150-450); RED BLOOD COUNT 4.63 10^6/uL (4.00-5.40); WHITE BLOOD COUNT 12.4 10^3/uL (4.0-10.0)
[2024-12-18 16:14] LABS: ERYTHROCYTE SEDIMENTATION RATE 59 mm/hr (0-30)
[2024-12-18 16:36] LABS: URIC ACID 3.8 MG/DL (3.1-7.8)
[2024-12-18 16:51] LABS: C REACTIVE PROTEIN QUANTITATIV 17.6 MG/DL (<1.0)
== END ==
LOC: SKLAB2 13:38
PROVIDERS: ATTEND Internal Medicine
DX: M25.561 Pain in right knee (principal)

== ENCOUNTER → 2024-12-18 | Outpatient (REF) | LOC: M RAD 13:59 | PROVIDERS: ATTEND Nurse Practitioner Family | DX: M79.604 Pain in right leg (principal) ==

== ENCOUNTER → 2025-01-07 | Outpatient (REF) | payer MEDICARE | LOC: M RAD 10:06 → EDSTATUS 10:30 | PROVIDERS: ATTEND Nurse Practitioner Family | DX: R33.9 Retention of urine, unspecified (principal) ==

== ENCOUNTER → 2025-05-27 | Outpatient (REF) | payer MEDICARE ==
[~2025-05-27] MED LIST changes: -PRAV20TA2 PO; +PRAV20TA78 PO
[2025-05-27 15:25] LABS: BASO # 0.0 10^3/uL (0.0-0.2); BASO % 0.6 % (0.0-1.0); EOS # 0.2 10^3/uL (0.0-0.5); EOS % 2.3 % (0.0-3.0); LYMPH # 1.4 10^3/uL (1.5-5.0); LYMPH % 21.9 % (24.0-44.0); MONO # 0.5 10^3/uL (0.0-0.8); MONO % 7.8 % (2.0-8.0); NEUTROPHILS # 4.3 10^3/uL (1.5-8.5); NEUTROPHILS % 67.1 % (36.0-66.0); PLATELET COUNT, AUTOMATED 231 10^3/uL (150-450)
[2025-05-27 15:48] LABS: ALT/SGPT 25.0 U/L (7.0-40); AST/SGOT 32.0 U/L (<34); CALCIUM LEVEL 9.1 MG/DL (8.3-10.6); CARBON DIOXIDE LEVEL 31.0 MMOL/L (20-31); CHLORIDE LEVEL 101.0 MMOL/L (98-107); CREATININE FOR GFR 0.65 MG/DL (0.55-1.30); GLOMERULAR FILTRATION RATE 86.2 (>32); POTASSIUM SERUM 4.2 MMOL/L (3.5-5.1); SODIUM LEVEL 141.0 MMOL/L (136-145)
[2025-05-27 15:54] LABS: FREE T4 1.05 NG/DL (0.89-1.76)
[2025-05-27 16:18] LABS: ESTIMATED AVERAGE GLUCOSE 174.0 MG/DL (60-110)
== END ==
LOC: M SFHCCLAY 08:52
PROVIDERS: ATTEND Nurse Practitioner Family
DX: E11.69 Type 2 diabetes mellitus with other specified complication (principal); K21.9 Gastro-esophageal reflux disease without esophagitis; Z86.711 Personal history of pulmonary embolism; Z12.31 Encounter for screening mammogram for malignant neoplasm of breast; M81.0 Age-related osteoporosis without current pathological fracture; S42.292S Other displaced fracture of upper end of left humerus, sequela; I10 Essential (primary) hypertension; E78.5 Hyperlipidemia, unspecified

== ENCOUNTER → 2025-07-02 | Outpatient (POV) | payer MEDICARE ==
[~2025-07-02] VITALS: Ht 152.4 cm; Wt 81.8 kg
[~2025-07-02] MED LIST changes: +GABA-1172 PO; +HYDR-3490 PO; +LOSA25TA13 PO
[2025-07-02 08:30] VITALS: BP 169/76; O2SAT 90
== END ==
LOC: M IRPOV 08:13
PROVIDERS: ATTEND Registered Nurse School
DX: Z01.89 Encounter for other specified special examinations (principal); G47.33 Obstructive sleep apnea (adult) (pediatric); Z86.711 Personal history of pulmonary embolism; Z86.718 Personal history of other venous thrombosis and embolism; Z79.01 Long term (current) use of anticoagulants; Z91.048 Other nonmedicinal substance allergy status; Z79.899 Other long term (current) drug therapy

== ENCOUNTER → 2025-08-14 | Outpatient (REF) | payer MEDICARE ==
[2025-08-14 12:04] LABS: PLATELET COUNT, AUTOMATED 195 10^3/uL (150-450)
[2025-08-14 12:35] LABS: INR 1.02
[2025-08-14 12:39] LABS: ALT/SGPT 30.0 U/L (7.0-40); AST/SGOT 28.0 U/L (<34); CALCIUM LEVEL 9.0 MG/DL (8.3-10.6); CARBON DIOXIDE LEVEL 32.0 MMOL/L (20-31); CHLORIDE LEVEL 101.0 MMOL/L (98-107); CREATININE FOR GFR 0.66 MG/DL (0.55-1.30); GLOMERULAR FILTRATION RATE 85.9 (>32); POTASSIUM SERUM 4.4 MMOL/L (3.5-5.1); SODIUM LEVEL 144.0 MMOL/L (136-145)
== END ==
LOC: M LABDRAWC 11:51 → M LAB REF 11:51
PROVIDERS: ATTEND Radiology Diagnostic Radiology
DX: I82.401 Acute embolism and thrombosis of unspecified deep veins of right lower extremity (principal)

== ENCOUNTER → 2025-08-15 | Outpatient (CLI) | payer MEDICARE ==
[~2025-08-15] MED LIST changes: +NS (Normal Saline) 0.9% 1,000 ML IV SCH
[2025-08-15 09:25] VITALS: TEMP 97.6
[2025-08-15] MEDS: LIDOCAINE 1% MDV 20 ML VIAL SC SCH (10:43)
[2025-08-15] MEDS: HEPARIN 1,000 UNITS/ML 10 ML VIAL (FOR RADIOLOGY & DIALYSIS ONLY) IV PRN (10:43)
[2025-08-15] MEDS: ISOVUE-300 61% 100 ML VIAL IV SCH (10:44)
[2025-08-15 11:45] VITALS: BP 145/67; O2SAT 95
== END ==
LOC: M IRPRO 09:17
PROVIDERS: ATTEND Registered Nurse School
DX: I82.401 Acute embolism and thrombosis of unspecified deep veins of right lower extremity (principal)
CPT/HCPCS: 37191; Q9967